=== PATIENT | female | born 1970 | race Caucasian/White ===

== ENCOUNTER 2022-09-23 10:00 | Outpatient (CLI) | payer BC, SELFPAY ==
--- NOTE | ~2022-09-23 | MR_ITS ---
MRI of the cervical spine Clinical History: Neck pain Technique: Axial T2-weighted and gradient images, and sagittal T1-weighted, T2-weighted, and STIR woody ges were acquired. Findings: There is no fracture or subluxation of the cervical spine. Vertebral bodies maintain normal height and alignment. No suspicious bone marrow signal abnormality identified. At C2-C3, there is no disc bulge or herniation. No spinal canal stenosis, cord compression, or neural foraminal narrowing. At C3-C4, there is mild left paracentral to left foraminal disc bulge. No spinal canal stenosis or co rd compression. There is left neural foraminal narrowing. Right neural foramen preserved. At C4-C5, there is minimal disc bulge bulge with minimal canal stenosis but no cory cord compression . No neural foraminal narrowing. At C5-C6, there is minimal disc bulge with mild central canal stenosis but no cory cord compression. There is probable mild right neural foraminal narrowing. Left neural foramen preserved. At C6-C7, there is no significant disc bulge or herniation. No spinal canal stenosis, cord compressio n, or neural foraminal narrowing. No abnormal signal seen in the spinal cord. Paravertebral soft tissues are unremarkable. No preverteb ral soft tissue swelling. Impression: Mild degenerative spondylosis, as detailed above. Probable mild left neural foraminal narrowing at C3 -C4 and mild right neural foraminal narrowing at C5-C6. Probable minimal canal stenosis at C4-C5 and C5-C6, without cory cord compression. Reviewed, dictated and finalized at location [] [facility] Impression: Mild degenerative spondylosis, as detailed above. Probable mild left neural for aminal narrowing at C3-C4 and mild right neural foraminal narrowing at C5-C6. Probable minimal canal stenosis at C4-C5 and C5-C6, without cory cord compress ion.
== END 2022-09-23 10:01 | disposition home or self-care (01) ==
PROVIDERS: PCP Family Medicine; Visit Provider Neurological Surgery
DX: M47.892 Other spondylosis, cervical region (principal)
CPT/HCPCS: 72141

== ENCOUNTER 2023-11-19 13:22 | Emergency (ER) | payer BC, SELFPAY ==
[2023-11-19] VITALS (21 sets, daily range): BP systolic 101–155; BP diastolic 75–96; PULSE 72–104; RESP 11–22; TEMP 36.3; O2SAT 94–100
--- NOTE | ~2023-11-19 | XR_ITS ---
EXAMINATION: XR chest 1V portable INDICATION: Chest pressure TECHNIQUE: Portable AP chest at 1402 hours COMPARISON: None available FINDINGS: The lungs are free of acute opacities. No pleural effusion or pneumothorax. The cardiomedia stinal silhouette is normal. IMPRESSION: 1. No acute cardiopulmonary abnormality. Reviewed, dictated and finalized at location B. [facility]
--- NOTE | 2023-11-19 13:28 | ECG_ITS ---
Measurements Intervals [place] Rate: 82 P: 60 [place]: 145 QRS: 23 QRSD: 97 T: 50 QT: 358 QTc: 418 Interpretive Statements SINUS RHYTHM WITH OCCASIONAL VENTRICULAR PREMATURE COMPLEXES LOW QRS VOLTAGE NONSPECIFIC T-WAVE ABNORMALITY ABNORMAL ECG NO PREVIOUS ECG AVAILABLE FOR COMPARISON Electronically Signed On 11-19-2023 15:50:04 ADDICTIONS COUNSELOR ASSISTANT by Obi Aldana M.D.
[2023-11-19 13:57] LABS: Basophils Absolute Auto 0.04 K/mm3 (0.00-0.10); Basophils Percent Auto 0.6 % (0.0-1.0); Eosinophils Absolute Auto 0.24 K/mm3 (0.02-0.50); Eosinophils Percent Auto 3.4 % (1.0-6.0); Hematocrit 44.4 % (35.0-49.0); Hemoglobin 14.9 g/dL (12.0-15.0); Immature Granulocyte Absolute 0.04 K/mm3 (0.00-0.00); Immature Granulocyte Percent A 0.6 % (0.0-0.0); Lymphocytes Absolute Auto 1.65 K/mm3 (1.10-4.50); Lymphocytes Percent Auto 23.4 % (18.0-42.0); Mean Corpuscular HGB Conc 33.6 g/dL (32.0-36.0); Mean Corpuscular Hemoglobin 29.4 pg (27.0-31.0); Mean Corpuscular Volume 87.7 fL (78.0-102.0); Mean Platelet Volume 9.8 fl (9.2-11.8); Monocytes Absolute Auto 0.35 K/mm3 (0.10-0.90); Neutrophils Absolute Auto 4.7 K/mm3 (1.7-7.2); Platelet Count Result 232 K/mm3 (150-420); Red Blood Count 5.06 M/mm3 (4.20-5.40); Red Cell Distribution Width 12.5 % (11.6-14.4)
[2023-11-19] MEDS: ASPIRIN 81 MG CHEWABLE TABLET 324 MG PO (14:07)
[2023-11-19 14:11] LABS: D Dimer 0.27 mg/L (0.19-0.50)
--- NOTE | 2023-11-19 14:14 | PC.NURSE ---
pt declined iv at this time unless needed .
[2023-11-19 14:21] LABS: Alanine Aminotransferase 63 U/L (14-59); Albumin Level 3.8 g/dL (3.4-5.0); Alkaline Phosphatase 54 U/L (46-116); Anion Gap 9 mmol/L (8-16); Aspartate Amino Transferase 74 U/L (15-37); Bilirubin,Total 0.5 mg/dL (0.00-1.00); Blood Urea Nitrogen 26 mg/dL (7-18); Calcium 9.3 mg/dL (8.5-10.1); Carbon Dioxide 30 mmol/L (21-32); Chloride 100 mmol/L (98-108); Estimated Glomerular Filt Rate 49; Glucose 157 mg/dL (70-99); Lipase 52 U/L (16-77); NT Pro B Type Natriuretic Pept 35 pg/mL (0-125); Osmolality Calculated 295 mOsm/kg (285-295); Sodium 139 mmol/L (136-145); Total Protein 7.1 g/dL (6.4-8.2)
[2023-11-19 14:32] LABS: Troponin I 4.6 ng/L (0.00-60.4)
[2023-11-19 15:06] LABS: Appearance Urine Clear (Clear); Bilirubin Urine Negative (Negative); Blood Urine Trace-Intact (Negative); Color Urine Light Yellow (Yellow); Glucose Urine UA Negative (Negative); Ketones Urine Trace (Negative); Leukocyte Esterase Ur Negative LEU/UL (Negative); Nitrate Urine Negative (Negative); Protein Urine Negative (Negative); Urobilinogen Urine 0.2 mg/dL (0.2-1.0); pH Urine 5.5 (5.0-8.0)
[2023-11-19 15:12] LABS: Add Urine Microscopic? YES; Bacteria Urine Trace /hpf; RBC Urine 0-2 /hpf (0-2); Squamous Epithelial Cell Urine Few /hpf (Few); WBC Urine None seen /hpf (0-3)
[2023-11-19] MEDS: POTASSIUM CHLORIDE 20 MEQ PACKET (FOR LIQUID) 40 MEQ PO (15:33)
--- NOTE | 2023-11-19 15:54 | ED.CHESTPAIN ---
HPI - Chest Pain General Chief Complaint: Chest Pain Stated Complaint: chest pain Source: patient Mode of arrival: ambulatory Limitations: no limitations History of Present Illness HPI narrative: Patient is a 53-year-old female with significant past medical history presents today with chest pain. Patient has had chest pain on and off for the last week. She states the chest pain comes and goes, does not matter if she is at rest or if she is with activity. She denies any shortness of breath. She does states she has been doing some heavy lifting around the house and there could be possibility of pulling a muscle in the chest. She has no cardiac history that she is aware of. Denies any family history of cardiac problems. MD complaint: chest pain Onset (ago): week(s) Timing of current episode: episodic Prior episodes: Yes Onset: during rest and during exertion Pain location: left chest and right chest Pain radiation: none Severity: mild Pain scale (0-10): 3 Quality: tightness and sharp Relieving factors: nothing Exacerbating factors: nothing Context: recent illness Associated symptoms: diaphoresis Treatment prior to arrival: none Related Data On Oral Contraceptives: No Home Medications Medication Instructions Recorded Confirmed sertraline 25 mg tablet 25 mg PO DAILY 09/07/22 09/29/22 tizanidine 4 mg capsule 4 mg PO QHS PRN 09/07/22 09/29/22 topiramate 25 mg tablet 25 mg PO DAILY 09/07/22 09/29/22 Allergies Allergy/AdvReac Type Severity Reaction Status Date / Time No Known Allergies Allergy Verified 09/07/22 15:03 Review of Systems Review of Systems: All systems reviewed & are unremarkable except as noted in HPI and below Constitutional: Constitutional: Reports no additional constitutional complaints Eyes: Eyes: Reports no additional eye complaints ENT: Reports system reviewed and no additional complaints, except as documented Cardiovascular: Cardiovascular: Reports as per HPI and Reports chest pain Respiratory: Respiratory: Reports no additional respiratory complaints and Reports no additional respiratory complaints Gastrointestinal: Gastrointestinal: Reports no additional gastrointestinal complaints Genitourinary: Genitourinary: Reports no additional female genitourinary complaints Musculoskeletal: Musculoskeletal: Reports as per HPI Integumentary/Breasts: Skin/Breast: Reports system reviewed and no additional complaints, except as docu Neurologic: Reports system reviewed and no additional complaints, except as documented Psychiatric: Psychiatric: Reports no additional psychiatric complaints Endocrine: Endocrine: Reports no additional endocrine complaints Hematologic/Lymphatic: Hematologic/Lymphatic: Reports no additional hematologic/lymphatic complaints Allergic/Immunologic: Allergic/Immunologic: Reports no additional allergic/immunologic complaints [facility] Past Medical History Medical History Acute arthritis Chronic headaches Surgical History Surgical History H/O: hysterectomy Family History Family History Other Lung cancer Thyroid disease Social History Social History Smoking status: Never smoker Alcohol intake: current Substance use: never Substance use type: does not use Current Housing: Decline to Answer Concerned About Future Housing: Decline to Answer Difficulty Paying Gas/Electric Bills: Decline to Answer Difficulty Paying for Meds: Decline to Answer Currently Unemployed: Decline to Answer Education: Decline to Answer Difficulty w/ Childcare or Family Care: Decline to Answer Living arrangements: with family Occupation/Education: occupation Exam Const: General: cooperative and healthy appearing Nutritional Appearance: average b
== END 2023-11-19 16:09 | disposition home or self-care (01) ==
PROVIDERS: Emergency Provider Family Medicine; PCP Family Medicine
DX: M94.0 Chondrocostal junction syndrome [Tietze] (principal); R07.89 Other chest pain
CPT/HCPCS: 36415; 71045; 80053; 81001; 83690; 83880; 84484; 85025; 85380; 93005; 99284; A9270

== ENCOUNTER 2024-04-23 06:52 | Emergency (ER) | payer BC, SELFPAY ==
[2024-04-23] VITALS (36 sets, daily range): BP systolic 113–152; BP diastolic 71–98; PULSE 65–90; RESP 14–18; TEMP 36.4–37.3; O2SAT 94–100
--- NOTE | ~2024-04-23 | CT_ITS ---
EXAMINATION: CT abdomen pelvis w con DATE: 04/23/2024 08:31 INDICATION: Pancreatitis percent with nausea and epigastric pain. Elevated liver function tests. TECHNIQUE: Computed tomography (CT) of the abdomen and pelvis was performed with 100 mL Omnipaque-350 intravenous contrast. Automated exposure control and iterative reconstruction technique were employe d. The dose-length product was 613.19 mGy-cm. COMPARISON: None FINDINGS: Mild discoid atelectasis in the left lower lobe and lingula. Calcified lingular nodule consistent wit h old granulomatous disease. Heart size is normal. No pericardial or pleural effusion. Peripancreatic stranding consistent with acute interstitial pancreatitis. There is homogeneous pancreatic parenchym al enhancement. No discrete loculated peripancreatic fluid collections. Mild dilation of the common b ile duct which measures up to 10 mm in maximal diameter. Minimal amount of pericholecystic fluid. The gallbladder is otherwise unremarkable. Spleen, bilateral adrenal glands and left kidney are normal. 7 mm right renal cyst. Minimal amount of likely reactive ascites in the deep pelvis. No bowel obstruc tion. Normal appendix. Bladder is normal. The uterus is not identified and has likely been surgically resected. No pathologically enlarged abdominal or pelvic lymphadenopathy. Mild to moderate lower lum bar spondylosis with severe bilateral facet osteoarthritis at L4-L5 and with likely fusion at L5-S1. IMPRESSION: 1. Acute interstitial pancreatitis. 2. Dilation of the common bile duct and could not exclude a low-density gallstones occult on CT. Cons ider MRCP for further evaluation. Reviewed, dictated and finalized at location A. IMPRESSION: 1. Acute interstitial pancreatitis. 2. Dilation of the common bile duct and could not exclude a low-density gallsto isaac occult on CT. Consider MRCP for further evaluation.
--- NOTE | 2024-04-23 06:56 | ED.GENADULT ---
HPI - General Adult General Chief complaint: Abdominal Pain Stated complaint: epigastric pain Time Seen by Provider: 04/23/24 06:54 History of Present Illness HPI narrative: Jessika is a 53F with a PMH of foraminal stenosis of the cervical spine and GERD that presented to the ED with epigastric discomfort. It has been going on off and on for the last week. Yesterday, around 6 PM she had pain in her epigastric region that radiates to her back. She is nauseated and cannot vomit. No diarrhea but last BM was at 0400. No CP or dyspnea. Related Data Home Medications Medication Instructions Recorded Confirmed pantoprazole 40 mg tablet,delayed 40 mg PO BID 04/23/24 04/23/24 release Allergies Allergy/AdvReac Type Severity Reaction Status Date / Time No Known Allergies Allergy Verified 04/23/24 07:06 Review of Systems Review of Systems: All systems reviewed & are unremarkable except as noted in HPI and below PMFSH Past Medical History Medical History Acute arthritis Chronic headaches Surgical History Surgical History H/O: hysterectomy Family History Family History Other Lung cancer Thyroid disease Social History Social History Smoking status: Never smoker Alcohol intake: current Substance use: never Substance use type: does not use Current Housing: Decline to Answer Concerned About Future Housing: Decline to Answer Difficulty Paying Gas/Electric Bills: Decline to Answer Difficulty Paying for Meds: Decline to Answer Currently Unemployed: Decline to Answer Education: Decline to Answer Difficulty w/ Childcare or Family Care: Decline to Answer Living arrangements: with family Occupation/Education: occupation Course Course Emergency Course: -Ordered EKG and labs EKG slhowed NSR with a rate of 76, normal axis and no ST elevation or depression Labs showed very elevated LFTs, bilirubin, lipase and CRP so a CT was ordered as well more fluids and pain meds. EXAMINATION: CT abdomen pelvis w con DATE: 04/23/2024 08:31 INDICATION: Pancreatitis percent with nausea and epigastric pain. Elevated liver function tests. TECHNIQUE: Computed tomography (CT) of the abdomen and pelvis was performed with 100 mL Omnipaque-350 intravenous contrast. Automated exposure control and iterative reconstruction technique were employed. The dose-length product was 613.19 mGy-cm. COMPARISON: None FINDINGS: Mild discoid atelectasis in the left lower lobe and lingula. Calcified lingular nodule consistent with old granulomatous disease. Heart size is normal. No pericardial or pleural effusion. Peripancreatic stranding consistent with acute interstitial pancreatitis. There is homogeneous pancreatic parenchymal enhancement. No discrete loculated peripancreatic fluid collections. Mild dilation of the common bile duct which measures up to 10 mm in maximal diameter. Minimal amount of pericholecystic fluid. The gallbladder is otherwise unremarkable. Spleen, bilateral adrenal glands and left kidney are normal. 7 mm right renal cyst. Minimal amount of likely reactive ascites in the deep pelvis. No bowel obstruction. Normal appendix. Bladder is normal. The uterus is not identified and has likely been surgically resected. No pathologically enlarged abdominal or pelvic lymphadenopathy. Mild to moderate lower lumbar spondylosis with severe bilateral facet osteoarthritis at L4-L5 and with likely fusion at L5-S1. IMPRESSION: 1. Acute interstitial pancreatitis. 2. Dilation of the common bile duct and could not exclude a low-density gallstones occult on CT. Consider MRCP for further evaluation. Contacted [facility] for admission and Dr. Casey called back who accepted. given elevated lipase, LFTs, bili and CT gallstone p
--- NOTE | 2024-04-23 06:58 | ECG_ITS ---
Test Date: 2024-04-23 07:08:02 Measurements Intervals [place] Rate: 76 P: 51 [place]: 143 QRS: 33 QRSD: 81 T: 59 QT: 379 QTc: 427 Interpretive Statements SINUS RHYTHM BASELINE WANDER- I, II, III, AVL, AVF NORMAL ECG No previous ECG available for comparison Electronically Signed On 04-23-2024 07:22:01 CDT by Srini Fitzpatrick D.O.
[2024-04-23 07:21] LABS: Basophils Absolute Auto 0.03 K/mm3 (0.00-0.10); Basophils Percent Auto 0.4 % (0.0-1.0); Eosinophils Absolute Auto 0.12 K/mm3 (0.02-0.50); Eosinophils Percent Auto 1.6 % (1.0-6.0); Hematocrit 43.1 % (35.0-49.0); Hemoglobin 14.7 g/dL (12.0-15.0); Immature Granulocyte Absolute 0.02 K/mm3 (0.00-0.00); Immature Granulocyte Percent A 0.3 % (0.0-0.0); Lymphocytes Absolute Auto 1.12 K/mm3 (1.10-4.50); Lymphocytes Percent Auto 14.5 % (18.0-42.0); Mean Corpuscular HGB Conc 34.1 g/dL (32-36); Mean Corpuscular Hemoglobin 30.4 pg (27.0-31.0); Mean Platelet Volume 10.4 fl (9.2-11.8); Monocytes Absolute Auto 0.38 K/mm3 (0.10-0.90); Monocytes Percent Auto 4.9 % (2.0-11.0); Neutrophils Absolute Auto 6.03 K/mm3 (1.70-7.20); Neutrophils Percent Auto 78.3 % (50.0-70.0); Platelet Count Result 224 K/mm3 (150-420); Red Blood Count 4.84 M/mm3 (4.20-5.40); Red Cell Distribution Width 12.3 % (11.6-14.4); White Blood Count 7.7 K/mm3 (4.8-10.8)
[2024-04-23] MEDS: LACTATED RINGERS 500 ML 999 ML IV CONT (07:30)
[2024-04-23] MEDS: MORPHINE SULFATE (*CRX) 4 MG/ML INJ IV PUSH (07:31)
[2024-04-23] MEDS: ONDANSETRON INJ 4 MG/2 ML VIAL IV PUSH (07:31)
[2024-04-23 07:41] LABS: Lactic Acid Reflex 1.5 mmol/L (0.4-2.0)
[2024-04-23 07:47] LABS: Albumin Level 3.7 g/dL (3.4-5.0); Alkaline Phosphatase 118 U/L (46-116); Anion Gap 8 mmol/L (4-12); Bilirubin,Total 2.6 mg/dL (0.00-1.00); Blood Urea Nitrogen 17 mg/dL (7-18); CRP 0.5 mg/dL (0.0-0.9); Calcium 8.7 mg/dL (8.5-10.1); Carbon Dioxide 27 mmol/L (21-32); Chloride 102 mmol/L (98-108); Estimated Glomerular Filt Rate 52; Glucose 166 mg/dL (70-99); Osmolality Calculated 289 mOsm/kg (285-295); Potassium 3.9 mmol/L (3.5-5.1); Sodium 137 mmol/L (136-145); Total Protein 7.1 g/dL (6.4-8.2)
[2024-04-23 07:50] LABS: Alanine Aminotransferase > 1000 U/L (14-59); Aspartate Amino Transferase > 796 U/L (15-37); Lipase 2839 U/L (16-77); Troponin I < 4.0 ng/L (0.00-60.4)
[2024-04-23 08:36] LABS: Cholesterol 228 mg/dL (0-200); HDL Direct 66 mg/dL (40-60); LDL Cholesterol Calculated 146 mg/dL (<130); Triglycerides 79 mg/dL (0-150)
[2024-04-23] MEDS: LACTATED RINGERS 1,000 ML 999 ML IV CONT (09:16)
[2024-04-23] MEDS: MORPHINE SULFATE (*CRX) 2 MG/ML INJ IV PUSH (09:16)
== END 2024-04-23 12:38 | disposition short-term general hospital (02) ==
PROVIDERS: Emergency Provider Family Medicine; PCP Family Medicine
DX: K85.10 Biliary acute pancreatitis without necrosis or infection (principal)
CPT/HCPCS: 36415; 74177; 80053; 80061; 83605; 83690; 84484; 85025; 86140; 93005; 96361; 96374; 96375; 96376; 99285; J2270; J2405; J7120; Q9967

== ENCOUNTER 2024-04-23 13:13 | Inpatient (IN) | payer BC, SELFPAY ==
--- NOTE | ~2024-04-23 | XR_ITS ---
EXAMINATION: XR ERCP DATE: 04/26/2024 14:16 INDICATION: Cholelithiasis with ERCP and sweeping TECHNIQUE: Multiple spot fluoroscopic images of the right upper quadrant were obtained during endosco pic retrograde cholangiopancreatography (ERCP) performed by Dr. Kenneth May. Radiologist was not present for the imaging or procedure. The amount of fluoroscopy time used during this procedure was 2 .1 minutes. A total of 9 fluoroscopic images were obtained. Total DAP was 0.758 mGycm^2 COMPARISON: MRCP dated 04/24/2024 FINDINGS: Images demonstrate endoscopic retrograde cannulation of the common bile duct with contrast injection demonstrated mild dilation the common bile duct. There are some lucent filling defects in the duct on the initial images which could represent injected gas bubbles or gallstones. These are normal in brent earance and following balloon sweeping of the common bile duct. IMPRESSION: 1. Couple lucent filling defects in the mildly dilated common bile duct which could've represented in jected gas bubbles or stones and which are no longer present following balloon sweeping of the common bile duct. Please refer to the ERCP procedure note for additional details. Reviewed, dictated and finalized at location A. IMPRESSION: 1. Couple lucent filling defects in the mildly dilated common bile duct which c ould've represented injected gas bubbles or stones and which are no longer pres ent following balloon sweeping of the common bile duct. Please refer to the ERC P procedure note for additional details.
--- NOTE | ~2024-04-23 | NM_ITS ---
EXAMINATION: NM hepatobiliary w pharm DATE: 04/25/2024 11:39 INDICATION: Cholelithiasis COMPARISON: None. TECHNIQUE: 5.0 mCi Tc-99m mebrofenin (Choletec) was administered intravenously. Scintigraphic images of the abdomen were obtained for one hour. 1.6 mcg sincalide (Kinevac) was administered by slow intr avenous infusion, and imaging was continued for 30 minutes. Gallbladder ejection fraction was calcula francoise by the technologist. FINDINGS: There is normal clearance of radiotracer from the blood pool. There is homogeneous tracer uptake by t he liver. Activity progresses to the gallbladder and bowel. The gallbladder ejection fraction (GBEF) is 27% (normal 10-90%, but most patient with gallbladder dysfunction have GBEF < 35% which does over lap with the normal range). IMPRESSION: 1. Gallbladder ejection fraction is at the lower limits of normal. This could be normal but is also within the range of overlap with gallbladder dysfunction or chronic cholecystitis in the appropriate clinical setting. Reviewed, dictated and finalized at location A.
--- NOTE | ~2024-04-23 | MR_ITS ---
MRI of the abdomen: Clinical indication: Dilated common bile duct, pancreatitis. Technique: Coronal SSFSE ARC, WATER:coronal LAVA-FLEX, Coronal 2D FIESTA FatSat, Axial SSFSE BH ARC, Axial 3D DualEcho BH, Axial SSFSE-IR, Axial DWI b=500, Axial 2D FIESTA FatSat, pre and dynamic postco ntrast Axial LAVA ARC, postcontrast Coronal In and Opposed phase LAVA FLEX. Following intravenous adm inistration of 16 cc MultiHance gadolinium, T1-weighted fat-sat imaging was performed in the axial an d coronal planes. COMPARISON: CT scan dated 04/23/2024 Findings: Gallstones are noted. There is gallbladder wall thickening. The common bile duct is normal in course and caliber. Questionable single tiny filling defect in the distal common bile duct (series 9 image 25). No evidence of intrahepatic biliary ductal dilatation. The pancreatic duct is normal in size. Liver, spleen, adrenals, kidneys appear normal. There is minimal peripancreatic inflammatory change/f luid stranding. No pancreatic necrosis or pseudocyst evident. The aorta and the paraaortic regions ap pear normal. No abnormal postcontrast enhancement identified. Impression: Cholelithiasis. Gallbladder wall thickening could reflect superimposed acute cholecystitis. Consider HIDA scan as indicated. Mild acute pancreatitis. Possible tiny common bile duct stone, as detailed above. Reviewed, dictated and finalized at [facility]. Impression: Cholelithiasis. Gallbladder wall thickening could reflect superimposed acute ch olecystitis. Consider HIDA scan as indicated. Mild acute pancreatitis. Possible tiny common bile duct stone, as detailed above.
[2024-04-23 13:25] VITALS: BMI 33.4
--- NOTE | 2024-04-23 13:29 | PC.NURSE ---
This patient, Jessika Wagner, was admitted to [facility] Surg Room 324-01. Patient/family oriented to hospital policies and general routines including ID bracelet, bed and alarms, visiting hours, pain management, procedures, bathroom and other care routines, personal items, smoking policy, room service/diet, and visiting hours. Information on how to activate the Rapid Response Team has been discussed. Patient/Family are encouraged to report perceived risks to care and to ask questions if they do not understand what they are told or what they should do.
--- NOTE | 2024-04-23 13:29 | PM.IMHP ---
H&P: HPI History of Present Illness Date/Time: 04/23/24 13:30 Chief Complaint: Epigastric pain. Narrative: This is a very pleasant 53-year-old female with GERD who presented to the emergency department at [facility] early this morning for evaluation of epigastric pain. She has not been feeling well for about a week with intermittent epigastric pain which seems to occur not long after eating. It had been self-limiting up until last night and she has had constant pain since about 18:00. She describes a severe squeezing/tight pain in the epigastrium which radiates through to the back. Associated symptoms include nausea and hot flashes. She had a similar episode in November of this year. She has taken aspirin, acetaminophen, and [id number] PPI, and Lola-Foreman without relief. She denies fever, vomiting, diarrhea, melena, and hematochezia. She has no known history of gallbladder disease, pancreatitis, or peptic ulcers. No significant alcohol use or NSAID use. In the ED: She was afebrile on arrival with stable vital signs. Preliminary workup is concerning for gallstone pancreatitis with elevated lipase, LFTs, and bilirubin in addition to findings of acute interstitial pancreatitis on CT scan with dilatation of common bile duct. Transfer was initiated to [place] for GI services and she was accepted to the medical floor per Dr. Casey. She received IV fluids, antiemetics, and analgesics and the pain is perhaps a bit better at this time. Review of Systems Review of Systems: 12 systems were reviewed and are negative except for as per HPI. [facility] Past Medical History Medical History (Updated 04/23/24 @ 13:35 by Chela Freeman PA-C) Cervical spondylosis Chronic headaches Foraminal stenosis of cervical region Gastroesophageal reflux disease Surgical History Surgical History (Updated 04/23/24 @ 13:35 by Chela Freeman PA-C) History of hysterectomy History of lumbar laminectomy Family History Family History Other Lung cancer Thyroid disease Social History Social History (Updated 04/23/24 @ 15:33 by Chela Freeman PA-C) Social History: Surrogate medical decision maker: Roxi Morillo, daughter. Code status: Full code. Smoking status: Never smoker Alcohol intake: current Drinks per week: 5 Substance use: never Substance use type: does not use Do You Feel Safe in your Home?: Yes Lack of Transportation: No Lack of Food: Never True Current Housing: Decline to Answer Concerned About Future Housing: Decline to Answer Difficulty Paying Gas/Electric Bills: Decline to Answer Difficulty Paying for Meds: Decline to Answer Currently Unemployed: Decline to Answer Education: Decline to Answer Difficulty w/ Childcare or Family Care: Decline to Answer Living arrangements: with family Occupation/Education: occupation Spiritual care concerns: No Meds Home Medications and Allergies Home Medications Medication Instructions Recorded Confirmed Type pantoprazole 40 mg tablet,delayed 40 mg PO BID 04/23/24 04/23/24 History release Allergies Allergy/AdvReac Type Severity Reaction Status Date / Time No Known Allergies Allergy Verified 04/23/24 07:06 Exam Narrative: General: Well-developed, nontoxic-appearing female in moderate pain. Weight: 80.9 kg. BMI: 33.4. HEENT: PERRL, EOMI. Sclera anicteric. Tacky mucous membranes. Neck: Supple. Respiratory: Lungs are clear to auscultation bilaterally. Cardiovascular: Regular rate and rhythm with S1-S2. Gastrointestinal: Abdomen is soft and nondistended with positive bowel sounds. She is tender to palpation throughout the upper quadrant. No guarding or rebound tenderness. Skin: Warm and dry. She does not appear jaundiced. Extremities: No cyanosis, clubbing, or edema. Radial and pedal pulses intact. Neurological: Alert. Cranial nerves 2
[2024-04-23 13:36] VITALS: BP 122/75; PULSE 86; RESP 16; TEMP 36.5; O2SAT 99
[2024-04-23] MEDS: SODIUM CHLORIDE 0.9% IV 1,000 ML 150 ML IV CONT ×2 (14:17→23:38)
[2024-04-23] MEDS: MORPHINE SULFATE (*CRX) 2 MG/ML INJ IV PUSH ×2 (14:17→20:37)
[2024-04-23] MEDS: ONDANSETRON INJ 4 MG/2 ML VIAL IV PUSH (14:17)
[2024-04-23 15:19] LABS: Prothrombin Time 13.2 Seconds (11.1-14.7)
[2024-04-23 15:20] LABS: Partial Thromboplastin Time 25.8 Seconds (22.3-36.8)
[2024-04-23 15:37] LABS: Alkaline Phosphatase 108 U/L (38-126); Anion Gap 9 mmol/L (4-12); Bilirubin,Total 1.1 mg/dL (0.2-1.3); Blood Urea Nitrogen 16 mg/dL (7-17); Calcium 8.4 mg/dL (8.4-10.2); Carbon Dioxide 25 mmol/L (22-30); Chloride 105 mmol/L (98-107); Estimated CRCL calculation 71 ml/min; Estimated Glomerular Filt Rate > 60; Glucose 114 mg/dL (65-110); Potassium 3.6 mmol/L (3.4-5.0); Sodium 139 mmol/L (137-145)
[2024-04-23 15:51] LABS: Hepatitis B Surface Antigen Negative (Negative)
[2024-04-23 15:54] LABS: Alanine Aminotransferase 1079 U/L (6-35); Aspartate Amino Transferase 948 U/L (14-36); Lipase 26518 U/L (23-300)
[2024-04-23 15:57] LABS: HAV RESULT Negative (Negative); Hepatitis B Core IgM Result Negative (Negative)
[2024-04-23 16:08] LABS: Hepatitis C Virus Antibody Negative (Negative)
[2024-04-23 20:28] LABS: Acetaminophen < 10 ug/mL (10-30)
[2024-04-23 20:40] VITALS: PULSE 86; RESP 16; O2SAT 99
[2024-04-23 23:30] VITALS: BP 124/85; PULSE 83; RESP 18; TEMP 36.3; O2SAT 92
[2024-04-24 06:00] VITALS: BP 130/79; PULSE 84; RESP 20; TEMP 36.3; O2SAT 96
[2024-04-24] MEDS: SODIUM CHLORIDE 0.9% IV 1,000 ML 150 ML IV CONT ×2 (06:03→16:37)
[2024-04-24 06:15] LABS: Hematocrit 37.3 % (37.0-47.0); Hemoglobin 12.3 g/dL (12.0-15.0); Mean Corpuscular Hemoglobin 30.8 pg (26-34); Mean Corpuscular Volume 93.5 fl (80-100); Mean Platelet Volume 10.4 fl (7.4-10.4); Platelet Count Result 184 k/mm3 (150-375); Red Blood Count 3.99 M/mm3 (4.2-5.4); Red Cell Distribution Width 12.7 % (11.5-14.5); White Blood Count 7.1 K/mm3 (4.5-10.0)
[2024-04-24 06:25] LABS: Alanine Aminotransferase 719 U/L (6-35); Albumin Level 3.5 g/dL (3.5-5.1); Alkaline Phosphatase 90 U/L (38-126); Anion Gap 8 mmol/L (4-12); Aspartate Amino Transferase 360 U/L (14-36); Bilirubin,Total 0.7 mg/dL (0.2-1.3); Blood Urea Nitrogen 11 mg/dL (7-17); Calcium 7.7 mg/dL (8.4-10.2); Carbon Dioxide 25 mmol/L (22-30); Chloride 106 mmol/L (98-107); Estimated CRCL calculation 80 ml/min; Estimated Glomerular Filt Rate > 60; Glucose 100 mg/dL (65-110); Potassium 3.2 mmol/L (3.4-5.0); Sodium 139 mmol/L (137-145)
--- NOTE | 2024-04-24 08:28 | PM.IMPN ---
Progress Note: A&P Assessment and Plan (1) Acute pancreatitis: Code(s): K85.90 - Acute pancreatitis without necrosis or infection, unspecified Status: Acute Assessment and Plan: - Abdomen/pelvis CT: Acute interstitial pancreatitis. Dilation of the common bile duct and could not exclude a low-density gallstones occult on CT. Consider MRCP for further evaluation. - MRCP: Cholelithiasis. Gallbladder wall thickening could reflect superimposed acute cholecystitis. Consider HIDA scan as indicated. Mild acute pancreatitis. Possible tiny common bile duct stone. - HIDA scan ordered - Lipase 2839 on admission -> 15104. Will continue to trend. - Analgesics - IV fluid resuscitation - Continue bowel rest, patient remains NPO for HIDA scan will advance to clear liquids afterwards - GI consulted - Monitor I&Os, vital signs, - Monitor serum electrolytes, CBC, WBC, temperature curve (2) Transaminitis: Code(s): R74.01 - Elevation of levels of liver transaminase levels Status: Acute Assessment and Plan: Tot bili 2.6, AST >796, ALT >1000, alk phos 118 on admission. Concerning for common bile duct obstruction. No choledocholithiasis seen on imaging. Possible that the stone has passed. - LFTs downtrending with IV fluid resuscitation - GI consulted Liver workup ordered - Abdomen/pelvis CT: Acute interstitial pancreatitis. Dilation of the common bile duct and could not exclude a low-density gallstones occult on CT. Consider MRCP for further evaluation. - MRCP: Cholelithiasis. Gallbladder wall thickening could reflect superimposed acute cholecystitis. Consider HIDA scan as indicated. Mild acute pancreatitis. Possible tiny common bile duct stone. (3) Common bile duct dilatation: Code(s): K83.8 - Other specified diseases of biliary tract Status: Acute Assessment and Plan: See acute pancreatitis #1 and transaminitis #2 (4) Gastroesophageal reflux disease: Code(s): K21.9 - Gastro-esophageal reflux disease without esophagitis Status: Acute Assessment and Plan: Chronic, well controlled on home medications. - Protonix 40 mg IV - Monitor Time Spent With Patient Time with patient: 25 - 35 minutes Subjective Date/time seen: 04/24/24 08:28 Interval history: 53-year-old female with GERD who presented to the emergency department at [facility] early this morning for evaluation of epigastric pain. Patient is pleasant lying comfortably in bed. She states she is feeling much better than yesterday. She continues to endorse mild epigastric pain with palpation that she describes as a bruising pain. She denies nausea/vomiting. Patient was evaluated by GI and a HIDA scan was ordered. Patient denies chest pain, shortness of breath, palpitations, and changes in bowel/bladder. Review of Systems Review of Systems: All systems reviewed & are unremarkable except as noted in HPI and below Exam Narrative: AF HR 85 RR 16 SpO2 98 BP 117/80 General: female in no acute respiratory distress who is nontoxic appearing, lying semi recumbent in bed. HEENT: Normocephalic. Atraumatic. Extraocular movement intact. Sclera clear and anicteric. No facial asymmetry. Chest: Lungs are clear to auscultation bilaterally. No wheezes or crackles. CV: Heart was regular rate and rhythm. S1-S2. No murmurs, gallops, or rubs. Abd: Abdomen was soft. Mild tenderness to epigastric region. Nondistended. Positive bowel sounds. No organomegaly or masses. Ext: No clubbing, cyanosis, or edema. 2+ DP pulses bilaterally. Neuro: Patient is alert and oriented x4. Cranial nerves 2-12 are intact. Speech is clear. Psych: Normal mood and affect. Patient is pleasant and cooperative. Skin: Warm and dry. No rashes noted. Objective Data Vital Signs Vital Signs: Vital Signs - 24 hr 04/23/24 13:36 04/23/24 20:40 04/23/24 23:30 Temperature 97.7 F 97.3 F L Pulse Rate 86 86 83 Respiratory Rate 16 16 18 Blo
[2024-04-24] MEDS: PANTOPRAZOLE SODIUM IV 40 MG VIAL IV PUSH (08:40)
--- NOTE | 2024-04-24 10:34 | P.CONGI_ITS ---
I, Kendall Long MD, have provided a substantive portion of the care of this patient and discussed the patient with my Nurse Practitioner. I have reviewed any new relevant radiographic and laboratory results including medications. I agree with her documentation as noted below.?I personally performed the medical decision making and much of the history and exam for this encounter. briefly she is here with intermittent post prandial pain since November but lately more intense, localized upper abdomen with radiation to her back and nausea, diagnosed with acute pancreatitis after elevated transaminases and lipase, CT scan c/w gallstone pancreatitis, MRCP showed possible small stone in bile dut. Denies history of liver disease or pancreatitis, no GI surgeries. She is feeling better. Plan is to proceed with ERCP tomorrow with balloon sweep to assess bile duct and also consult surgery. Alcohol only socially, denies excess. Assessment and Plan Assessment and plan (1) Acute pancreatitis: Qualifiers: Pancreatitis type: idiopathic Acute pancreatitis complication: no infection or necrosis Qualified Code(s): K85.00 - Idiopathic acute pancreatitis without necrosis or infection Code(s): K85.90 - Acute pancreatitis without necrosis or infection, unspecified Status: Acute (2) Gastroesophageal reflux disease: Qualifiers: Esophagitis presence: esophagitis presence not specified Qualified Code(s): K21.9 - Gastro-esophageal reflux disease without esophagitis Code(s): K21.9 - Gastro-esophageal reflux disease without esophagitis Status: Acute (3) Elevated lipase: Code(s): R74.8 - Abnormal levels of other serum enzymes Status: Acute (4) Abnormal digestive system diagnostic imaging: Code(s): R93.3 - Abnormal findings on diagnostic imaging of other parts of digestive tract Status: Acute (5) Elevated LFTs: Code(s): R79.89 - Other specified abnormal findings of blood chemistry Status: Acute (6) Gallstones: Code(s): K80.20 - Calculus of gallbladder without cholecystitis without obstruction Status: Acute Plan 1) Acute pancreatitis /elevated lipase/epigastric pain/abnormal imaging digestive- cholelithiasis: LFT's trending down since admission Total bilirubin 2.6 --> 0.7 (today), AST >796 --> 360, ALT >1000 --> 719, Alkaline phosphatase 118 --> 90. Lipase 2839 --> 76295 (today). Epigastric pain has Been occurring intermittently since around December. She describes this pain as a tightness that has no correlation with food intake or bowel movements. She had been started on Protonix 40 mg daily and December and increase to b.i.d. dosing 2 weeks ago with no change in symptoms. On Wednesday her upper abdominal pain became so severe that she presented to the emergency room for evaluation. CT showed acute interstitial pancreatitis and dilation of the common bile duct measuring 10 mm. MRCP was then performed which showed gallstones, gallbladder wall thickening, mild acute pancreatitis, and possible tiny common bile duct stone but no CBD dilation noted. patient denies any recent medication changes, alcohol use or any other recent Hx that may have caused pancreatitis. Unclear if the patient previously had a stone that has passed. * patient is symptomatically doing much better * HIDA scan to evaluate gallbladder function * Labs ordered to R/O autoimmune pancreatitis or viral etiology * recheck lipase tomorrow a.m. 2) Elevated LFTs:LFT's trending down since admission Total bilirubin 2.6 --> 0.7 (today), AST >796 --> 360, ALT >1000 --> 719, Alkaline phosphatase 118 --> 90. normal appearing liver
--- NOTE | 2024-04-24 10:34 | WPDGICN ---
Assessment and Plan Assessment and plan (1) Acute pancreatitis: Qualifiers: Pancreatitis type: idiopathic Acute pancreatitis complication: no infection or necrosis Qualified Code(s): K85.00 - Idiopathic acute pancreatitis without necrosis or infection Code(s): K85.90 - Acute pancreatitis without necrosis or infection, unspecified Status: Acute (2) Gastroesophageal reflux disease: Qualifiers: Esophagitis presence: esophagitis presence not specified Qualified Code(s): K21.9 - Gastro-esophageal reflux disease without esophagitis Code(s): K21.9 - Gastro-esophageal reflux disease without esophagitis Status: Acute (3) Elevated lipase: Code(s): R74.8 - Abnormal levels of other serum enzymes Status: Acute (4) Abnormal digestive system diagnostic imaging: Code(s): R93.3 - Abnormal findings on diagnostic imaging of other parts of digestive tract Status: Acute (5) Elevated LFTs: Code(s): R79.89 - Other specified abnormal findings of blood chemistry Status: Acute (6) Gallstones: Code(s): K80.20 - Calculus of gallbladder without cholecystitis without obstruction Status: Acute Plan 1) Acute pancreatitis /elevated lipase/epigastric pain/abnormal imaging digestive- cholelithiasis: LFT's trending down since admission Total bilirubin 2.6 --> 0.7 (today), AST >796 --> 360, ALT >1000 --> 719, Alkaline phosphatase 118 --> 90. Lipase 2839 --> 65060 (today). Epigastric pain has Been occurring intermittently since around December. She describes this pain as a tightness that has no correlation with food intake or bowel movements. She had been started on Protonix 40 mg daily and December and increase to b.i.d. dosing 2 weeks ago with no change in symptoms. On Wednesday her upper abdominal pain became so severe that she presented to the emergency room for evaluation. CT showed acute interstitial pancreatitis and dilation of the common bile duct measuring 10 mm. MRCP was then performed which showed gallstones, gallbladder wall thickening, mild acute pancreatitis, and possible tiny common bile duct stone but no CBD dilation noted. patient denies any recent medication changes, alcohol use or any other recent Hx that may have caused pancreatitis. Unclear if the patient previously had a stone that has passed. patient is symptomatically doing much better HIDA scan to evaluate gallbladder function Labs ordered to R/O autoimmune pancreatitis or viral etiology recheck lipase tomorrow a.m. 2) Elevated LFTs:LFT's trending down since admission Total bilirubin 2.6 --> 0.7 (today), AST >796 --> 360, ALT >1000 --> 719, Alkaline phosphatase 118 --> 90. normal appearing liver on imaging. No prior history of elevated LFTs. Patient is a social drinker but denies any history of excessive alcohol use. hepatitis panel negative. INR and platelets normal. Acetaminophen level <10. Denies any recent antibiotic use or medication changes. Liver workup ordered continue following LFTs 3) Screening colonoscopy: The patient has never had a colonoscopy. Family history negative for CRC or IBD. Can discuss outpatient colonoscopy during follow-up outpatient visit Thank you very much for allowing me to share the care of this very nice patient. This report may have been done utilizing a voice recognition system. Attempts have been made to correct errors. However, there may be uncorrected grammatical, spelling, and recognition errors present. GI Consult Note Consult date/time: 04/24/24 10:34 Reason for consult: gallstone pancreatitis HPI: This is a 53 year old female with a past medical surgical history of GERD, chronic headaches, and hysterectomy. She presents to the office today for follow up visit after being seen in the [facility] emergency room yesterday morning for epigastric pain. She was afebrile on arrival with stable vital signs. Preliminary workup was concernin
[2024-04-24 11:38] LABS: Iron 38 ug/dL (37-170)
[2024-04-24 11:48] LABS: Percent Iron Saturation 15 % (20-50)
[2024-04-24 13:33] VITALS: BP 117/80; PULSE 85; RESP 16; TEMP 36.5; O2SAT 98
[2024-04-24 15:49] LABS: Lipase 5531 U/L (23-300)
[2024-04-24] MEDS: POTASSIUM CHLORIDE INJ 40 MEQ in SODIUM CHLORIDE 0.9% IV 500 ML 130 MEQ IVPB (16:36)
[2024-04-24 20:00] VITALS: PULSE 85; RESP 16; O2SAT 98
[2024-04-24 22:10] VITALS: BP 130/67; PULSE 95; RESP 16; TEMP 36.8; O2SAT 98
[2024-04-25 05:25] VITALS: BP 124/81; PULSE 97; RESP 20; TEMP 36.8; O2SAT 97
[2024-04-25 06:46] LABS: Basophils Percent Auto 0.5 % (0.2-1.2); Eosinophils Absolute Auto 0.1 K/mm3 (0-0.3); Eosinophils Percent Auto 1.6 % (0-4.4); Hematocrit 38.3 % (37.0-47.0); Hemoglobin 12.4 g/dL (12.0-15.0); Immature Granulocyte Absolute 0.04 K/mm3 (0.00-0.031); Immature Granulocyte Percent A 0.5 % (0-0.5); Lymphocytes Absolute Auto 1.41 K/mm3 (0.9-3.2); Lymphocytes Percent Auto 16.2 % (18.3-44.2); Mean Corpuscular HGB Conc 32.4 g/dl (32-36); Mean Corpuscular Hemoglobin 30.2 pg (26-34); Mean Corpuscular Volume 93.4 fl (80-100); Mean Platelet Volume 10.7 fl (7.4-10.4); Monocytes Absolute Auto 0.6 K/mm3 (0.1-0.6); Monocytes Percent Auto 6.5 % (2.6-8.5); Neutrophils Absolute Auto 6.5 K/mm3 (1.3-6.7); Neutrophils Percent Auto 74.7 % (45.5-73.1); Platelet Count Result 195 k/mm3 (150-375); Red Cell Distribution Width 12.4 % (11.5-14.5); White Blood Count 8.7 K/mm3 (4.5-10.0)
[2024-04-25 07:02] LABS: Alanine Aminotransferase 444 U/L (6-35); Albumin Level 3.7 g/dL (3.5-5.1); Alkaline Phosphatase 95 U/L (38-126); Anion Gap 12 mmol/L (4-12); Aspartate Amino Transferase 117 U/L (14-36); Bilirubin,Total 1.2 mg/dL (0.2-1.3); Blood Urea Nitrogen 6 mg/dL (7-17); Calcium 8.4 mg/dL (8.4-10.2); Carbon Dioxide 19 mmol/L (22-30); Chloride 108 mmol/L (98-107); Estimated CRCL calculation 91 ml/min; Estimated Glomerular Filt Rate > 60; Glucose 79 mg/dL (65-110); Potassium 3.3 mmol/L (3.4-5.0); Sodium 139 mmol/L (137-145)
--- NOTE | 2024-04-25 07:08 | PM.IMPN ---
Progress Note: A&P Assessment and Plan (1) Acute pancreatitis: Qualifiers: Acute pancreatitis complication: no infection or necrosis Pancreatitis type: idiopathic Qualified Code(s): K85.00 - Idiopathic acute pancreatitis without necrosis or infection Code(s): K85.90 - Acute pancreatitis without necrosis or infection, unspecified Status: Acute Assessment and Plan: - Abdomen/pelvis CT: Acute interstitial pancreatitis. Dilation of the common bile duct and could not exclude a low-density gallstones occult on CT. Consider MRCP for further evaluation. - MRCP: Cholelithiasis. Gallbladder wall thickening could reflect superimposed acute cholecystitis. Consider HIDA scan as indicated. Mild acute pancreatitis. Possible tiny common bile duct stone. - HIDA scan: Gallbladder ejection fraction is at the lower limits of normal. This could be normal but is also within the range of overlap with gallbladder dysfunction or chronic cholecystitis in the appropriate clinical setting. - Lipase 2839 on admission -> 91718 -> 5531 - Analgesics - IV fluid resuscitation - Continue bowel rest, advanced to clear liquids afterwards - GI consulted - Monitor I&Os, vital signs, - Monitor serum electrolytes, CBC, WBC, temperature curve (2) Transaminitis: Code(s): R74.01 - Elevation of levels of liver transaminase levels Status: Acute Assessment and Plan: Tot bili 2.6, AST >796, ALT >1000, alk phos 118 on admission. Concerning for common bile duct obstruction. No choledocholithiasis seen on imaging. Possible that the stone has passed. - LFTs downtrending with IV fluid resuscitation - GI consulted Liver workup ordered - Abdomen/pelvis CT: Acute interstitial pancreatitis. Dilation of the common bile duct and could not exclude a low-density gallstones occult on CT. Consider MRCP for further evaluation. - MRCP: Cholelithiasis. Gallbladder wall thickening could reflect superimposed acute cholecystitis. Consider HIDA scan as indicated. Mild acute pancreatitis. Possible tiny common bile duct stone. (3) Common bile duct dilatation: Code(s): K83.8 - Other specified diseases of biliary tract Status: Acute Assessment and Plan: See acute pancreatitis #1 and transaminitis #2 (4) Gastroesophageal reflux disease: Qualifiers: Esophagitis presence: esophagitis presence not specified Qualified Code(s): K21.9 - Gastro-esophageal reflux disease without esophagitis Code(s): K21.9 - Gastro-esophageal reflux disease without esophagitis Status: Acute Assessment and Plan: Chronic, well controlled on home medications. - Protonix 40 mg IV - Monitor Time Spent With Patient Time with patient: 25 - 35 minutes Subjective Date/time seen: 04/25/24 07:08 Interval history: 53-year-old female with GERD who presented to the emergency department at [facility] [place] early this morning for evaluation of epigastric pain. Patient is pleasant lying comfortably in bed. She states that her epigastric pain is much improved from yesterday. She is tolerating a clear liquid diet well, denying nausea vomiting and diarrhea. She had a HIDA scan performed today that revealed a gallbladder ejection fraction on the lower limits of normal. Per Radiology this could be gallbladder dysfunction or chronic cholecystitis. Patient remains on IV fluids in lipase continues to down trend. Lipase 5531 on am labs. GI continues to follow. patient continues to chest pain, shortness a breath, palpitations, in changes in bowel/ bladder. Review of Systems Review of Systems: All systems reviewed & are unremarkable except as noted in HPI and below Exam Narrative: AF HR 97 RR 20 SpO2 97 BP 124/81 General: female in no acute respiratory distress who is nontoxic appearing, lying semi recumbent in bed. Chest: Lungs are clear to auscultation bilaterally. No wheezes or crackles. CV: Heart was regular rate and rhythm
[2024-04-25] MEDS: POTASSIUM CHLORIDE 20 MEQ ER TABLET 40 MEQ PO (08:11)
[2024-04-25] MEDS: PANTOPRAZOLE SODIUM IV 40 MG VIAL IV PUSH (08:11)
[2024-04-25] MEDS: SODIUM CHLORIDE 0.9% IV 1,000 ML 150 ML IV CONT ×2 (12:22→20:04)
[2024-04-25 13:19] LABS: Ceruloplasmin 25 mg/dL (14-48)
[2024-04-25 14:00] VITALS: BP 144/87; PULSE 87; RESP 20; TEMP 36; O2SAT 100
[2024-04-25 14:29] LABS: CMV IgG Antibody >10.00 U/mL; CMV IgM Antibody <30.00 AU/mL
[2024-04-25 14:53] LABS: Alpha-1-Antitrypsin, QN 149 mg/dL (83-199)
--- NOTE | 2024-04-25 16:50 | WPDGIPROGNO ---
Progress Note: A&P Assessment and Plan (1) Choledocholithiasis: Code(s): K80.50 - Calculus of bile duct without cholangitis or cholecystitis without obstruction Status: Acute Assessment and Plan: clinically much better but MRCP show possible small stone in bile duct she is agreeable with ERCP tomorrow, there is a possibility that stone has not passed yet also will ask surgery to evaluate because GS pancreatitis (2) Gallstone pancreatitis: Code(s): K85.10 - Biliary acute pancreatitis without necrosis or infection Status: Acute (3) Elevated LFTs: Code(s): R79.89 - Other specified abnormal findings of blood chemistry Status: Acute Assessment and Plan: monitor, trending down (4) Upper abdominal pain: Code(s): R10.10 - Upper abdominal pain, unspecified Status: Acute Subjective Date/time seen: 04/25/24 16:50 Interval history: overall better Review of Systems Review of Systems: All systems reviewed & are unremarkable except as noted in HPI and below Exam Const: General: comfortable and no acute distress HENMT: Face/Nose/Sinus: Normal nares present Eyes: General: appearance normal, both eyes and all related structures Neck: Neck: supple Resp: Auscultation: clear to auscultation bilaterally Cardio: Rate: regular rate Rhythm: regular rhythm GI: Inspection: non-distended GI Palp: Yes Soft to palpation, Yes Tenderness to palpation present (GI) (mild ttp in epigastric, no rebound) and No Guarding due to palpation present (GI) Auscultation: normal bowel sounds Skin: General skin exam: normal color Neuro: Speech: normal speech Motor exam (neuro): 5/5 motor strength present throughout Extrem: General: normal to inspection Psych: Mental Status: mental status grossly normal Objective Data Vital Signs Vital Signs: Vital Signs - 24 hr 04/24/24 20:00 04/24/24 22:10 04/25/24 05:25 Temperature 98.3 F 98.2 F Pulse Rate 85 95 97 Respiratory Rate 16 16 20 Blood Pressure 130/67 124/81 Pulse Oximetry 98 98 97 Oxygen Delivery Room Air 04/25/24 08:11 04/25/24 14:00 Temperature 96.8 F L Pulse Rate 87 Respiratory Rate 20 Blood Pressure 144/87 H Pulse Oximetry 100 Oxygen Delivery Room Air Intake/Output Intake/Output: Intake & Output 04/22/24 04/23/24 04/24/24 04/25/24 23:59 23:59 23:59 23:59 Intake Total 1000 3075 400 Output Total 1000 Balance 1000 2075 400 Meds/Results Medications: Active Medications Generic Name Dose Route Start Last Admin Trade Name Freq PRN Reason Stop Dose Admin Enoxaparin Sodium 40 mg 04/24/24 09:00 04/25/24 08:11 Enoxaparin 40 Mg/0.4 Ml Syringe SUB-Q Not Given DAILY MARY ELLEN Sodium Chloride 1,000 mls @ 150 mls/hr 04/23/24 13:25 04/25/24 12:22 Normal Saline Iv IV CONT 150 mls/hr .[id number] MARY ELLEN Administration Indomethacin 50 mg 04/26/24 11:35 Indomethacin 50 Mg Supp.Rect RECTAL 04/26/24 11:36 ONCE ONE Morphine Sulfate 2 mg 04/23/24 13:24 04/23/24 20:37 Morphine Sulfate (*Crx) 2 Mg/Ml Inj IV PUSH 2 mg Q4H PRN Administration Pain Rated 7-10 Ondansetron HCl 4 mg 04/23/24 13:24 04/23/24 14:17 Ondansetron Inj 4 Mg/2 Ml Vial IV PUSH 4 mg Q6H PRN Administration Nausea And Vomiting Pantoprazole Sodium 40 mg 04/24/24 09:00 04/25/24 08:11 Pantoprazole Sodium Iv 40 Mg Vial IV PUSH 40 mg QAM MARY ELLEN Administration Radiology Results: ITS Impressions MRCP 04/24/24 07:17 Impression: Cholelithiasis. Gallbladder wall thickening could reflect superimposed acute cholecystitis. Consider HIDA scan as indicated. Mild acute pancreatitis. Possible tiny common bile duct stone, as detailed above. Hepatobiliary Scan Nuclear Medicine 04/25/24 11:49 IMPRESSION: 1. Gallbladder ejection fraction is at the lower limits of normal. This could be normal but is also within the range of overlap with gallbladder dysfunction or c
[2024-04-25 20:51] VITALS: BP 133/98; PULSE 88; RESP 20; TEMP 36; O2SAT 98
[2024-04-26] VITALS (10 sets, daily range): BP systolic 115–142; BP diastolic 73–92; PULSE 72–98; RESP 16–25; TEMP 35.6–37; O2SAT 95–99
[2024-04-26] MEDS: SODIUM CHLORIDE 0.9% IV 1,000 ML 150 ML IV CONT ×2 (03:43→16:08)
[2024-04-26 06:31] LABS: Basophils Percent Auto 0.5 % (0.2-1.2); Eosinophils Absolute Auto 0.2 K/mm3 (0-0.3); Eosinophils Percent Auto 2.3 % (0-4.4); Hematocrit 37.2 % (37.0-47.0); Hemoglobin 12.5 g/dL (12.0-15.0); Immature Granulocyte Absolute 0.05 K/mm3 (0.00-0.031); Immature Granulocyte Percent A 0.6 % (0-0.5); Lymphocytes Absolute Auto 1.29 K/mm3 (0.9-3.2); Lymphocytes Percent Auto 16.6 % (18.3-44.2); Mean Corpuscular HGB Conc 33.6 g/dl (32-36); Mean Corpuscular Hemoglobin 30.5 pg (26-34); Mean Corpuscular Volume 90.7 fl (80-100); Mean Platelet Volume 10.6 fl (7.4-10.4); Monocytes Absolute Auto 0.6 K/mm3 (0.1-0.6); Monocytes Percent Auto 8.1 % (2.6-8.5); Neutrophils Absolute Auto 5.6 K/mm3 (1.3-6.7); Neutrophils Percent Auto 71.9 % (45.5-73.1); Platelet Count Result 205 k/mm3 (150-375); Red Cell Distribution Width 12.5 % (11.5-14.5); White Blood Count 7.8 K/mm3 (4.5-10.0)
[2024-04-26 06:37] LABS: Alanine Aminotransferase 300 U/L (6-35); Albumin Level 3.8 g/dL (3.5-5.1); Alkaline Phosphatase 80 U/L (38-126); Anion Gap 8 mmol/L (4-12); Aspartate Amino Transferase 50 U/L (14-36); Bilirubin,Total 0.6 mg/dL (0.2-1.3); Blood Urea Nitrogen 6 mg/dL (7-17); Calcium 8.4 mg/dL (8.4-10.2); Carbon Dioxide 24 mmol/L (22-30); Chloride 107 mmol/L (98-107); Estimated CRCL calculation 79 ml/min; Estimated Glomerular Filt Rate > 60; Glucose 120 mg/dL (65-110); Potassium 3.3 mmol/L (3.4-5.0); Sodium 139 mmol/L (137-145)
[2024-04-26] MEDS: PANTOPRAZOLE SODIUM IV 40 MG VIAL IV PUSH (09:01)
[2024-04-26 09:32] LABS: Anti Nuclear Antibody Pattern Nuclear, Speckled; Anti Nuclear Antibody Titer 1:40 titer
--- NOTE | 2024-04-26 09:51 | PM.CNGS ---
Assessment and Plan Assessment and plan (1) Gallstone pancreatitis: Code(s): K85.10 - Biliary acute pancreatitis without necrosis or infection Status: Acute Assessment and Plan: Patient transferred from [facility] for acute pancreatitis, which appears to be improving. Etiology appears to be biliary. All imaging was reviewed. MRCP showed cholelithiasis with a possible common bile duct stone. LFTs elevated on presentation and have been trending down since admission with a normal bilirubin today. GI planning ERCP today. Discussed with the patient that we would recommend an interval laparoscopic cholecystectomy to prevent future episodes or complications from her gallstones. We discussed the details of the procedure, risks, benefits, alternatives, and expected recovery. We discussed the risks of bile leak and bile duct injury, liver/bowel injury, bleeding, and infection. Also discussed the possibility of having to convert to an open procedure if necessary. Her questions were answered and she agrees to proceed when appropriate. We will await ERCP results and follow along to decide on timing of surgery. (2) Choledocholithiasis: Code(s): K80.50 - Calculus of bile duct without cholangitis or cholecystitis without obstruction Status: Acute Assessment and Plan: ERCP today. (3) Cholelithiasis: Qualifiers: Cholelithiasis location: gallbladder and bile duct Cholecystitis acuity: unspecified acuity Biliary obstruction: without biliary obstruction Code(s): K80.20 - Calculus of gallbladder without cholecystitis without obstruction Status: Acute (4) Elevated LFTs: Code(s): R79.89 - Other specified abnormal findings of blood chemistry Status: Acute Assessment and Plan: Likely related to the possible common bile duct stone. See plan above. (5) Gastroesophageal reflux disease: Qualifiers: Esophagitis presence: esophagitis presence not specified Qualified Code(s): K21.9 - Gastro-esophageal reflux disease without esophagitis Code(s): K21.9 - Gastro-esophageal reflux disease without esophagitis Status: Acute Plan I have discussed the patient's case and plan of care with Dr. Prince. Thank you for allowing us to see the patient in consultation and we will continue to follow along with you. History of Present Illness Consult details Consult date: 04/26/24 Reason for consult: other (Gallstone pancreatitis) Requesting physician: Kendall Long MD Narrative: This is a 53-year-old woman with a PMH of GERD, who we have been asked to see in surgical consultation for gallstone pancreatitis. She reports having intermittent mild episodes of epigastric pain for the past 7 months. Typically pain would resolve in a few hours. She had another episode of epigastric pain starting 4 days ago that was more severe than her previous episodes. Pain did not improve overnight and ultimately brought her into [place] ED the following morning. She reports associated nausea, but no vomiting, fever, or chills. Workup in [place] ED was concerning for gallstone pancreatitis. Labs showed a white blood cell count of 7100, total bilirubin 2.6, AST greater than 796, ALT greater than 1000, alk-phos 118, and lipase 2839. CT scan of the abdomen and pelvis showed acute interstitial pancreatitis, dilation of the common bile duct and could not exclude a low-density gallstone. She was then transferred to [facility]. MRCP shows cholelithiasis, gallbladder wall thickening, mild acute pancreatitis, and possible tiny common bile duct stone. LFTs have been trending down and total bilirubin normal. Lipase trending down to 5531 2 days ago. GI following and planning an ERCP today. HIDA scan was also ordered that showed a gallbladder ejection fraction of 27%, which may indicate gallbladder dysfunction or chronic cholecystitis in the appropriate clinical setting. S
[2024-04-26] MEDS: POTASSIUM CHLORIDE INJ 40 MEQ in SODIUM CHLORIDE 0.9% IV 500 ML 130 MEQ IVPB (10:40)
--- NOTE | 2024-04-26 10:51 | PM.IMPN ---
Progress Note: A&P Assessment and Plan (1) Acute pancreatitis: Qualifiers: Acute pancreatitis complication: no infection or necrosis Pancreatitis type: idiopathic Qualified Code(s): K85.00 - Idiopathic acute pancreatitis without necrosis or infection Code(s): K85.90 - Acute pancreatitis without necrosis or infection, unspecified Status: Acute Assessment and Plan: - Abdomen/pelvis CT: Acute interstitial pancreatitis. Dilation of the common bile duct and could not exclude a low-density gallstones occult on CT. Consider MRCP for further evaluation. - MRCP: Cholelithiasis. Gallbladder wall thickening could reflect superimposed acute cholecystitis. Consider HIDA scan as indicated. Mild acute pancreatitis. Possible tiny common bile duct stone. - HIDA scan: Gallbladder ejection fraction is at the lower limits of normal. This could be normal but is also within the range of overlap with gallbladder dysfunction or chronic cholecystitis in the appropriate clinical setting. - Lipase 2839 on admission -> 97530 -> 5531 - Analgesics - IV fluid resuscitation - Continue bowel rest, advanced to clear liquids afterwards - GI consulted - Monitor I&Os, vital signs, - Monitor serum electrolytes, CBC, WBC, temperature curve - gi and surgery following (2) Transaminitis: Code(s): R74.01 - Elevation of levels of liver transaminase levels Status: Acute Assessment and Plan: Tot bili 2.6, AST >796, ALT >1000, alk phos 118 on admission. Concerning for common bile duct obstruction. No choledocholithiasis seen on imaging. Possible that the stone has passed. - LFTs downtrending with IV fluid resuscitation - GI consulted Liver workup ordered - Abdomen/pelvis CT: Acute interstitial pancreatitis. Dilation of the common bile duct and could not exclude a low-density gallstones occult on CT. Consider MRCP for further evaluation. - MRCP: Cholelithiasis. Gallbladder wall thickening could reflect superimposed acute cholecystitis. Consider HIDA scan as indicated. Mild acute pancreatitis. Possible tiny common bile duct stone. (3) Common bile duct dilatation: Code(s): K83.8 - Other specified diseases of biliary tract Status: Acute Assessment and Plan: See acute pancreatitis #1 and transaminitis #2 (4) Gastroesophageal reflux disease: Qualifiers: Esophagitis presence: esophagitis presence not specified Qualified Code(s): K21.9 - Gastro-esophageal reflux disease without esophagitis Code(s): K21.9 - Gastro-esophageal reflux disease without esophagitis Status: Acute Assessment and Plan: Chronic, well controlled on home medications. - Protonix 40 mg IV - Monitor Time Spent With Patient Time with patient: 25 - 35 minutes Subjective Date/time seen: 04/26/24 10:51 Interval history: This is a 53-year-old woman with a PMH of GERD, who we have been asked to see in surgical consultation for gallstone pancreatitis. She reports having intermittent mild episodes of epigastric pain for the past 7 months. Typically pain would resolve in a few hours. She had another episode of epigastric pain starting 4 days ago that was more severe than her previous episodes. Pain did not improve overnight and ultimately brought her into [place] ED the following morning. She reports associated nausea, but no vomiting, fever, or chills. Workup in [place] ED was concerning for gallstone pancreatitis. Labs showed a white blood cell count of 7100, total bilirubin 2.6, AST greater than 796, ALT greater than 1000, alk-phos 118, and lipase 2839. CT scan of the abdomen and pelvis showed acute interstitial pancreatitis, dilation of the common bile duct and could not exclude a low-density gallstone. She was then transferred to [facility] for GI Services. MRCP shows cholelithiasis, gallbladder wall thickening, mild acute pancreatitis, and possible tiny common bile duct stone. LFTs have been trending down and
[2024-04-26] MEDS: LACTATED RINGERS 1,000 ML 150 ML IV CONT (13:10)
--- NOTE | 2024-04-26 13:18 | WPDANESEPPF ---
Anes - Initial Pre Proc Eval Procedure: Operation Date: 04/26/24 12:00 Proposed Procedures p Endoscopic Retro Cholangiopancreatogram - Kendall Long MD Date/Time: 04/26/24 13:18 Surgeon: Evelyne Moody PA-C Pre Op Diagnosis: pancreatitis Patient Data Age: 53 Gender: F Height: 1.57 m Weight: 81.2 kg Last Vital Signs Temp 97.1 F L 04/26/24 13:12 Pulse 96 04/26/24 13:12 Resp 18 04/26/24 13:12 BP 142/92 H 04/26/24 13:12 Pulse Ox 99 04/26/24 13:12 O2 Del Method Room Air 04/26/24 13:12 Allergies Allergy/AdvReac Type Severity Reaction Status Date / Time No Known Allergies Allergy Verified 04/26/24 13:11 Home Medications Medication Instructions Recorded Confirmed Type pantoprazole 40 mg tablet,delayed 40 mg PO BID 04/23/24 04/23/24 History release Laboratory Tests 04/24/24 04/26/24 10:54 06:09 WBC 7.8 K/mm3 (4.5-10.0) RBC 4.10 L M/mm3 (4.2-5.4) Hgb 12.5 g/dL (12.0-15.0) Hct 37.2 % (37.0-47.0) MCV 90.7 fl (80-100) MCH 30.5 pg (26-34) MCHC 33.6 g/dl (32-36) RDW 12.5 % (11.5-14.5) Plt Count 205 k/mm3 (150-375) MPV 10.6 H fl (7.4-10.4) Immature Gran % (Auto) 0.6 H % (0-0.5) Neut % (Auto) 71.9 % (45.5-73.1) Lymph % (Auto) 16.6 L % (18.3-44.2) Henry % (Auto) 8.1 % (2.6-8.5) Eos % (Auto) 2.3 % (0-4.4) Baso % (Auto) 0.5 % (0.2-1.2) Lymph # (Auto) 1.29 K/mm3 (0.9-3.2) Henry # (Auto) 0.6 K/mm3 (0.1-0.6) Eos # (Auto) 0.2 K/mm3 (0-0.3) Baso # (Auto) 0.0 K/mm3 (0.0-0.1) Abs Immat Gran (auto) 0.05 H K/mm3 (0.00-0.031) Absolute Neuts (auto) 5.6 K/mm3 (1.3-6.7) Absolute Nucleated RBC 0.000 K/mm3 (0.0-0.012) Nucleated RBC % 0.0 % (0.0-0.2) Sodium 139 mmol/L (137-145) Potassium 3.3 L mmol/L (3.4-5.0) Chloride 107 mmol/L (98-107) Carbon Dioxide 24 mmol/L (22-30) Anion Gap 8 mmol/L (4-12) BUN 6 L mg/dL (7-17) Creatinine 0.70 mg/dL (0.7-1.0) Estim Creat Clear Calc 79 ml/min Estimated GFR > 60 (59 - ) Glucose 120 H mg/dL (65-110) Calcium 8.4 mg/dL (8.4-10.2) Total Bilirubin 0.6 mg/dL (0.2-1.3) AST 50 H U/L (14-36) ALT 300 H U/L (6-35) Alkaline Phosphatase 80 U/L (38-126) Total Protein 7.0 g/dL (6.3-8.2) Albumin 3.8 g/dL (3.5-5.1) Blduv-3-Xoksndipsrg 149 mg/dL (83-199) Ceruloplasmin 25 mg/dL (14-48) MITCHEL Screen Positive A (NEGATIVE) MITCHEL Titer 1:40 H titer MITCHEL Pattern Nuclear, speckled A CMV IgG Ab >10.00 H U/mL CMV IgM Ab <30.00 AU/mL Patient hx anesthesia problems: none Family hx anesthesia problems: none Results Review: All pre-operative results and documents have been reviewed as part of the pre-operative evaluation. [facility] Past Medical History Medical History Cervical spondylosis Choledocholithiasis Chronic headaches Foraminal stenosis of cervical region Gallstone pancreatitis Gastroesophageal reflux disease Upper abdominal pain Surgical History Surgical History History of hysterectomy laparoscopic total abdominal hysterectomy History of lumbar laminectomy Family History Family History Other Lung cancer Thyroid disease Social History Social History Social History: Surrogate medical decision maker: Roxi Morillo, daughter. Code status: Full code. Smoking status: Never smoker Alcohol intake: current Drinks per week: 5 Substance use: never Substance use type: does not use Do You Feel Safe
[2024-04-26 14:08] LABS: Immunoglobulin G, Serum 701 mg/dL (600-1640); Immunoglobulin G1 453 mg/dL (382-929); Immunoglobulin G2 172 mg/dL (241-700); Immunoglobulin G3 40 mg/dL (22-178); Immunoglobulin G4 17.2 mg/dL (4.0-86.0)
[2024-04-26] MEDS: MORPHINE SULFATE (*CRX) 2 MG/ML INJ IV PUSH (18:35)
[2024-04-27] MEDS: SODIUM CHLORIDE 0.9% IV 1,000 ML 150 ML IV CONT ×2 (00:27→06:37)
[2024-04-27 01:09] LABS: EVB DNA,QN PCR NOT DETECTED; Epstein Barr Virus PCR NOT DETECTED copies/mL; Source WHOLE BLOOD
[2024-04-27 05:32] VITALS: BP 122/78; PULSE 81; RESP 16; TEMP 36.8; O2SAT 99
[2024-04-27 06:31] LABS: Basophils Percent Auto 0.5 % (0.2-1.2); Eosinophils Percent Auto 0.5 % (0-4.4); Hematocrit 35.8 % (37.0-47.0); Immature Granulocyte Absolute 0.02 K/mm3 (0.00-0.031); Immature Granulocyte Percent A 0.3 % (0-0.5); Lymphocytes Absolute Auto 1.07 K/mm3 (0.9-3.2); Lymphocytes Percent Auto 17.7 % (18.3-44.2); Mean Corpuscular HGB Conc 33.5 g/dl (32-36); Mean Corpuscular Volume 92.5 fl (80-100); Mean Platelet Volume 10.9 fl (7.4-10.4); Monocytes Absolute Auto 0.4 K/mm3 (0.1-0.6); Monocytes Percent Auto 7.1 % (2.6-8.5); Neutrophils Absolute Auto 4.5 K/mm3 (1.3-6.7); Neutrophils Percent Auto 73.9 % (45.5-73.1); Platelet Count Result 214 k/mm3 (150-375); Red Blood Count 3.87 M/mm3 (4.2-5.4); Red Cell Distribution Width 12.5 % (11.5-14.5); White Blood Count 6.1 K/mm3 (4.5-10.0)
[2024-04-27 06:40] LABS: Alanine Aminotransferase 265 U/L (6-35); Albumin Level 3.8 g/dL (3.5-5.1); Alkaline Phosphatase 97 U/L (38-126); Anion Gap 9 mmol/L (4-12); Aspartate Amino Transferase 103 U/L (14-36); Bilirubin,Total 0.9 mg/dL (0.2-1.3); Blood Urea Nitrogen 7 mg/dL (7-17); Calcium 8.5 mg/dL (8.4-10.2); Carbon Dioxide 25 mmol/L (22-30); Chloride 107 mmol/L (98-107); Estimated CRCL calculation 79 ml/min; Estimated Glomerular Filt Rate > 60; Glucose 110 mg/dL (65-110); Potassium 3.5 mmol/L (3.4-5.0); Sodium 141 mmol/L (137-145)
[2024-04-27] MEDS: PANTOPRAZOLE SODIUM IV 40 MG VIAL IV PUSH (09:21)
--- NOTE | 2024-04-27 09:45 | PM.PNGS ---
Progress Note: A&P Assessment and Plan (1) Cholelithiasis: Qualifiers: Cholelithiasis location: gallbladder and bile duct Cholecystitis acuity: unspecified acuity Biliary obstruction: without biliary obstruction Code(s): K80.20 - Calculus of gallbladder without cholecystitis without obstruction Status: Acute Assessment and Plan: Patient doing well following ERCP. We will plan to proceed with laparoscopic cholecystectomy tomorrow by Dr. Prince. Advance to a low-fat diet today and make her NPO after midnight. (2) Gallstone pancreatitis: Code(s): K85.10 - Biliary acute pancreatitis without necrosis or infection Status: Acute Assessment and Plan: Resolving. No longer having any abdominal pain or nausea. (3) Choledocholithiasis: Code(s): K80.50 - Calculus of bile duct without cholangitis or cholecystitis without obstruction Status: Acute Assessment and Plan: Status post ERCP with sphincterotomy yesterday. No stones found in the common bile duct. (4) Elevated LFTs: Code(s): R79.89 - Other specified abnormal findings of blood chemistry Status: Acute Plan I have discussed the patient's case and plan of care with Dr. Prince. Subjective Subjective Date/Time Seen: 04/27/24 09:45 Patient reports: no new complaints Interval history: Patient doing well this morning following ERCP yesterday. She denies any abdominal pain, nausea, or vomiting. She feels hungry this morning. No acute complaints overnight. Exam Const: General: comfortable and no acute distress Orientation/consciousness: patient oriented x3 GI: Inspection: non-distended GI Palp: Yes Soft to palpation, No Tenderness to palpation present (GI) and No Guarding due to palpation present (GI) Auscultation: normal bowel sounds Objective Data Vital Signs Vital Signs: Vital Signs - 24 hr 04/26/24 13:12 04/26/24 13:57 04/26/24 14:07 Temperature 97.1 F L Pulse Rate 96 98 88 Respiratory Rate 18 25 H 21 H Blood Pressure 142/92 H 117/73 125/77 Pulse Oximetry 99 97 98 Oxygen Delivery Room Air Simple Face Mask Room Air Oxygen Flow Rate 2 04/26/24 14:17 04/26/24 14:27 04/26/24 14:37 Temperature Pulse Rate 83 79 72 Respiratory Rate 21 H 22 H 17 Blood Pressure 115/75 131/79 125/78 Pulse Oximetry 96 97 99 Oxygen Delivery Room Air Room Air Room Air Oxygen Flow Rate 04/26/24 14:47 04/26/24 14:00 04/26/24 20:00 Temperature 97.1 F L Pulse Rate 75 80 Respiratory Rate 21 H 18 Blood Pressure 122/82 134/86 Pulse Oximetry 98 97 Oxygen Delivery Room Air Room Air Oxygen Flow Rate 04/26/24 21:55 04/27/24 05:32 Temperature 98.6 F 98.2 F Pulse Rate 87 81 Respiratory Rate 16 16 Blood Pressure 127/89 122/78 Pulse Oximetry 95 99 Oxygen Delivery Oxygen Flow Rate Intake/Output Intake/Output: Intake & Output 04/24/24 04/25/24 04/26/24 04/27/24 23:59 23:59 23:59 23:59 Intake Total 3075 2360 3708.0 1175 Output Total 1000 Balance 2075 2360 3708.0 1175 Meds/Results Medications: Active Medications Generic Name Dose Route Start Last Admin Trade Name Freq PRN Reason Stop Dose Admin Enoxaparin Sodium 40 mg 04/24/24 09:00 04/26/24 15:35 Enoxaparin 40 Mg/0.4 Ml Syringe SUB-Q Not Given DAILY MARY ELLEN Sodium Chloride 1,000 mls @ 150 mls/hr 04/23/24 13:25 04/27/24 06:37 Normal Saline Iv IV CONT 150 mls/hr .Q6H40M MARY ELLEN Administration Morphine Sulfate 2 mg 04/23/24 13:24 04/26/24 18:35 Morphine Sulfate (*Crx) 2 Mg/Ml Inj IV PUSH 2 mg Q4H PRN Administration Pain Rated 7-10 Ondansetron HCl 4 mg 04/23/24 13:24 04/23/24 14:17 Ondansetron Inj 4 Mg/2 Ml Vial IV PUSH 4 mg Q6H PRN Administration Nausea And Vomiting Pantoprazole Sodium 40 mg 04/24/24 09:00 04/27/24 09:21 Pantoprazole Sodium Iv 40 Mg Vial IV PUSH 40 mg QAM MARY ELLEN Administration Radiology Results: ITS Impressions MRCP
[2024-04-27 10:24] LABS: Herpes Simplex Type 1 DNA PCR NOT DETECTED; Herpes Simplex Type 2 DNA PCR NOT DETECTED
--- NOTE | 2024-04-27 11:22 | PM.IMPN ---
Progress Note: A&P Assessment and Plan (1) Acute pancreatitis: Qualifiers: Acute pancreatitis complication: no infection or necrosis Pancreatitis type: idiopathic Qualified Code(s): K85.00 - Idiopathic acute pancreatitis without necrosis or infection Code(s): K85.90 - Acute pancreatitis without necrosis or infection, unspecified Status: Acute Assessment and Plan: - Abdomen/pelvis CT: Acute interstitial pancreatitis. Dilation of the common bile duct and could not exclude a low-density gallstones occult on CT. Consider MRCP for further evaluation. - MRCP: Cholelithiasis. Gallbladder wall thickening could reflect superimposed acute cholecystitis. Consider HIDA scan as indicated. Mild acute pancreatitis. Possible tiny common bile duct stone. - HIDA scan: Gallbladder ejection fraction is at the lower limits of normal. This could be normal but is also within the range of overlap with gallbladder dysfunction or chronic cholecystitis in the appropriate clinical setting. - Lipase 2839 on admission -> 51559 -> 5531 - Analgesics - IV fluid resuscitation - Continue bowel rest, advanced to clear liquids afterwards - GI consulted - Monitor I&Os, vital signs, - Monitor serum electrolytes, CBC, WBC, temperature curve - gi and surgery following 04/27-doing well following ERCP. Plan for laparoscopic cholecystectomy tomorrow by Dr. Prince. Advance to a low-fat diet today and NPO after midnight. (2) Transaminitis: Code(s): R74.01 - Elevation of levels of liver transaminase levels Status: Acute Assessment and Plan: Tot bili 2.6, AST >796, ALT >1000, alk phos 118 on admission. Concerning for common bile duct obstruction. No choledocholithiasis seen on imaging. Possible that the stone has passed. - LFTs downtrending with IV fluid resuscitation - GI consulted Liver workup ordered - Abdomen/pelvis CT: Acute interstitial pancreatitis. Dilation of the common bile duct and could not exclude a low-density gallstones occult on CT. Consider MRCP for further evaluation. - MRCP: Cholelithiasis. Gallbladder wall thickening could reflect superimposed acute cholecystitis. Consider HIDA scan as indicated. Mild acute pancreatitis. Possible tiny common bile duct stone. (3) Common bile duct dilatation: Code(s): K83.8 - Other specified diseases of biliary tract Status: Acute Assessment and Plan: See acute pancreatitis #1 and transaminitis #2 (4) Gastroesophageal reflux disease: Qualifiers: Esophagitis presence: esophagitis presence not specified Qualified Code(s): K21.9 - Gastro-esophageal reflux disease without esophagitis Code(s): K21.9 - Gastro-esophageal reflux disease without esophagitis Status: Acute Assessment and Plan: Chronic, well controlled on home medications. - Protonix 40 mg IV - Monitor Time Spent With Patient Time with patient: 25 - 35 minutes Subjective Date/time seen: 04/27/24 11:22 Interval history: This is a 53-year-old woman with a PMH of GERD, who we have been asked to see in surgical consultation for gallstone pancreatitis. She reports having intermittent mild episodes of epigastric pain for the past 7 months. Typically pain would resolve in a few hours. She had another episode of epigastric pain starting 4 days ago that was more severe than her previous episodes. Pain did not improve overnight and ultimately brought her into [place] ED the following morning. She reports associated nausea, but no vomiting, fever, or chills. Workup in [place] ED was concerning for gallstone pancreatitis. Labs showed a white blood cell count of 7100, total bilirubin 2.6, AST greater than 796, ALT greater than 1000, alk-phos 118, and lipase 2839. CT scan of the abdomen and pelvis showed acute interstitial pancreatitis, dilation of the common bile duct and could not exclude a low-density gallstone. She was then transferred to [facility] for GI Services. Tonia
[2024-04-27 14:00] VITALS: BP 132/79; PULSE 85; RESP 16; TEMP 36.1; O2SAT 100
[2024-04-27] MEDS: polyethylene glycoL 3350 17 GM POWD.PACK PO (17:08)
--- NOTE | 2024-04-27 17:33 | WPDGIPROGNO ---
Progress Note: A&P Assessment and Plan (1) Gallstone pancreatitis: Code(s): K85.10 - Biliary acute pancreatitis without necrosis or infection Status: Acute Assessment and Plan: symptomatically much better s/p ercp, no complications and denies any more abdominal pain lap yanira tomorrow (2) Choledocholithiasis: Code(s): K80.50 - Calculus of bile duct without cholangitis or cholecystitis without obstruction Status: Acute Assessment and Plan: s/p ercp no major findings (3) Upper abdominal pain: Code(s): R10.10 - Upper abdominal pain, unspecified Status: Acute Assessment and Plan: resolved (4) Elevated LFTs: Code(s): R79.89 - Other specified abnormal findings of blood chemistry Status: Acute Assessment and Plan: expect to keep trending down Subjective Date/time seen: 04/27/24 17:33 Interval history: she is comfortable, no pain ercp yesterday with sphincterotomy, no stone found but bile duct swept multiple times Review of Systems Review of Systems: All systems reviewed & are unremarkable except as noted in HPI and below Exam Const: General: comfortable and no acute distress HENMT: Face/Nose/Sinus: Normal nares present Eyes: General: appearance normal, both eyes and all related structures Neck: Neck: supple Resp: Auscultation: clear to auscultation bilaterally Cardio: Rate: regular rate Rhythm: regular rhythm GI: Inspection: non-distended GI Palp: Yes Soft to palpation and No Tenderness to palpation present (GI) Auscultation: normal bowel sounds Skin: General skin exam: normal color Neuro: Speech: normal speech Motor exam (neuro): 5/5 motor strength present throughout Extrem: General: normal to inspection Psych: Mental Status: mental status grossly normal Objective Data Vital Signs Vital Signs: Vital Signs - 24 hr 04/26/24 20:00 04/26/24 21:55 04/27/24 05:32 Temperature 98.6 F 98.2 F Pulse Rate 87 81 Respiratory Rate 16 16 Blood Pressure 127/89 122/78 Pulse Oximetry 95 99 Oxygen Delivery Room Air 04/27/24 14:00 Temperature 96.9 F L Pulse Rate 85 Respiratory Rate 16 Blood Pressure 132/79 Pulse Oximetry 100 Oxygen Delivery Intake/Output Intake/Output: Intake & Output 04/24/24 04/25/24 04/26/24 04/27/24 23:59 23:59 23:59 23:59 Intake Total 3075 2360 3708.0 1175 Output Total 1000 Balance 2075 2360 3708.0 1175 Meds/Results Medications: Active Medications Generic Name Dose Route Start Last Admin Trade Name Freq PRN Reason Stop Dose Admin Enoxaparin Sodium 40 mg 04/24/24 09:00 04/27/24 09:47 Enoxaparin 40 Mg/0.4 Ml Syringe SUB-Q Not Given DAILY MARY ELLEN Sodium Chloride 1,000 mls @ 150 mls/hr 04/23/24 13:25 04/27/24 06:37 Normal Saline Iv IV CONT 150 mls/hr .Q6H40M MARY ELLEN Administration Morphine Sulfate 2 mg 04/23/24 13:24 04/26/24 18:35 Morphine Sulfate (*Crx) 2 Mg/Ml Inj IV PUSH 2 mg Q4H PRN Administration Pain Rated 7-10 Ondansetron HCl 4 mg 04/23/24 13:24 04/23/24 14:17 Ondansetron Inj 4 Mg/2 Ml Vial IV PUSH 4 mg Q6H PRN Administration Nausea And Vomiting Pantoprazole Sodium 40 mg 04/24/24 09:00 04/27/24 09:21 Pantoprazole Sodium Iv 40 Mg Vial IV PUSH 40 mg QAM MARY ELLEN Administration Polyethylene Glycol 17 gm 04/27/24 14:22 04/27/24 17:08 Polyethylene Glycol 3350 17 Gm Powd.Pack PO 17 gm QAM PRN Administration Constipation Radiology Results: ITS Impressions MRCP 04/24/24 07:17 Impression: Cholelithiasis. Gallbladder wall thickening could reflect superimposed acute cholecystitis. Consider HIDA scan as indicated. Mild acute pancreatitis. Possible tiny common bile duct stone, as detailed above. Hepatobiliary Scan Nuclear Medicine 04/25/24 11:49 IMPRESSION: 1. Gallbladder ejection fraction is at the lower limits of normal. This could be normal but is also within the range of
[2024-04-27 19:55] VITALS: BP 134/86; PULSE 82; RESP 20; TEMP 36.1; O2SAT 100
[2024-04-27 23:19] LABS: Actin Antibody (IgG) <20 U (<20)
[2024-04-28] VITALS (13 sets, daily range): BP systolic 119–145; BP diastolic 74–95; PULSE 66–86; RESP 12–18; TEMP 36.1–37; O2SAT 93–100
[2024-04-28 06:28] LABS: Basophils Percent Auto 0.6 % (0.2-1.2); Eosinophils Absolute Auto 0.2 K/mm3 (0-0.3); Eosinophils Percent Auto 3.9 % (0-4.4); Hematocrit 35.2 % (37.0-47.0); Hemoglobin 11.7 g/dL (12.0-15.0); Immature Granulocyte Absolute 0.02 K/mm3 (0.00-0.031); Immature Granulocyte Percent A 0.4 % (0-0.5); Mean Corpuscular HGB Conc 33.2 g/dl (32-36); Mean Corpuscular Hemoglobin 30.9 pg (26-34); Mean Corpuscular Volume 92.9 fl (80-100); Mean Platelet Volume 10.8 fl (7.4-10.4); Monocytes Absolute Auto 0.4 K/mm3 (0.1-0.6); Monocytes Percent Auto 7.5 % (2.6-8.5); Neutrophils Absolute Auto 3.1 K/mm3 (1.3-6.7); Neutrophils Percent Auto 57.6 % (45.5-73.1); Platelet Count Result 244 k/mm3 (150-375); Red Blood Count 3.79 M/mm3 (4.2-5.4); Red Cell Distribution Width 12.6 % (11.5-14.5); White Blood Count 5.3 K/mm3 (4.5-10.0)
--- NOTE | 2024-04-28 06:43 | PM.IMPN ---
Progress Note: A&P Assessment and Plan (1) Acute pancreatitis: Qualifiers: Acute pancreatitis complication: no infection or necrosis Pancreatitis type: idiopathic Qualified Code(s): K85.00 - Idiopathic acute pancreatitis without necrosis or infection Code(s): K85.90 - Acute pancreatitis without necrosis or infection, unspecified Status: Acute Assessment and Plan: - Abdomen/pelvis CT: Acute interstitial pancreatitis. Dilation of the common bile duct and could not exclude a low-density gallstones occult on CT. Consider MRCP for further evaluation. - MRCP: Cholelithiasis. Gallbladder wall thickening could reflect superimposed acute cholecystitis. Consider HIDA scan as indicated. Mild acute pancreatitis. Possible tiny common bile duct stone. - HIDA scan: Gallbladder ejection fraction is at the lower limits of normal. This could be normal but is also within the range of overlap with gallbladder dysfunction or chronic cholecystitis in the appropriate clinical setting. - Lipase 2839 on admission -> 21016 -> 5531 - Analgesics - IV fluid resuscitation - Continue bowel rest, advanced to clear liquids afterwards - GI consulted - Monitor I&Os, vital signs, - Monitor serum electrolytes, CBC, WBC, temperature curve - gi and surgery following 04/27-doing well following ERCP. Plan for laparoscopic cholecystectomy tomorrow by Dr. Prince. Advance to a low-fat diet today and NPO after midnight. (2) Transaminitis: Code(s): R74.01 - Elevation of levels of liver transaminase levels Status: Acute Assessment and Plan: Tot bili 2.6, AST >796, ALT >1000, alk phos 118 on admission. Concerning for common bile duct obstruction. No choledocholithiasis seen on imaging. Possible that the stone has passed. - LFTs downtrending with IV fluid resuscitation - GI consulted Liver workup ordered - Abdomen/pelvis CT: Acute interstitial pancreatitis. Dilation of the common bile duct and could not exclude a low-density gallstones occult on CT. Consider MRCP for further evaluation. - MRCP: Cholelithiasis. Gallbladder wall thickening could reflect superimposed acute cholecystitis. Consider HIDA scan as indicated. Mild acute pancreatitis. Possible tiny common bile duct stone. (3) Common bile duct dilatation: Code(s): K83.8 - Other specified diseases of biliary tract Status: Acute Assessment and Plan: See acute pancreatitis #1 and transaminitis #2 (4) Gastroesophageal reflux disease: Qualifiers: Esophagitis presence: esophagitis presence not specified Qualified Code(s): K21.9 - Gastro-esophageal reflux disease without esophagitis Code(s): K21.9 - Gastro-esophageal reflux disease without esophagitis Status: Acute Assessment and Plan: Chronic, well controlled on home medications. - Protonix 40 mg IV - Monitor Time Spent With Patient Time with patient: 25 - 35 minutes Subjective Date/time seen: 04/28/24 06:43 Interval history: Interval history: This is a 53-year-old woman with a PMH of GERD, who we have been asked to see in surgical consultation for gallstone pancreatitis. She reports having intermittent mild episodes of epigastric pain for the past 7 months. Typically pain would resolve in a few hours. She had another episode of epigastric pain starting 4 days ago that was more severe than her previous episodes. Pain did not improve overnight and ultimately brought her into [place] ED the following morning. She reports associated nausea, but no vomiting, fever, or chills. Workup in [place] ED was concerning for gallstone pancreatitis. Labs showed a white blood cell count of 7100, total bilirubin 2.6, AST greater than 796, ALT greater than 1000, alk-phos 118, and lipase 2839. CT scan of the abdomen and pelvis showed acute interstitial pancreatitis, dilation of the common bile duct and could not exclude a low-density gallstone. She was then transferred to [facility]
[2024-04-28 06:50] LABS: Alanine Aminotransferase 206 U/L (6-35); Albumin Level 3.5 g/dL (3.5-5.1); Alkaline Phosphatase 91 U/L (38-126); Anion Gap 9 mmol/L (4-12); Aspartate Amino Transferase 50 U/L (14-36); Bilirubin,Total 0.5 mg/dL (0.2-1.3); Blood Urea Nitrogen 12 mg/dL (7-17); Calcium 8.8 mg/dL (8.4-10.2); Carbon Dioxide 24 mmol/L (22-30); Chloride 106 mmol/L (98-107); Estimated CRCL calculation 80 ml/min; Estimated Glomerular Filt Rate > 60; Glucose 97 mg/dL (65-110); Potassium 3.2 mmol/L (3.4-5.0); Sodium 139 mmol/L (137-145)
[2024-04-28] MEDS: POTASSIUM CHLORIDE INJ 40 MEQ in SODIUM CHLORIDE 0.9% IV 500 ML 130 MEQ IVPB (08:33)
[2024-04-28] MEDS: PANTOPRAZOLE SODIUM IV 40 MG VIAL IV PUSH (08:34)
--- NOTE | 2024-04-28 11:03 | WPDANESEPPF ---
Anes - Initial Pre Proc Eval Procedure: Operation Date: 04/26/24 12:00 Proposed Procedures p Endoscopic Retro Cholangiopancreatogram - Kendall Long MD Operation Date: 04/28/24 12:00 Proposed Procedures p Laparoscopic Cholecystectomy, Possible Open - Magdiel Prince DO Date/Time: 04/28/24 11:03 Surgeon: Evelyne Moody PA-C Pre Op Diagnosis: pancreatitis Patient Data Age: 53 Gender: F Height: 1.57 m Weight: 83.3 kg Last Vital Signs Temp 37.0 C 04/28/24 10:50 Pulse 72 04/28/24 10:50 Resp 14 04/28/24 10:50 BP 127/86 04/28/24 10:50 Pulse Ox 100 04/28/24 10:50 O2 Del Method Room Air 04/28/24 10:50 O2 Flow Rate 2 04/26/24 13:57 Allergies Allergy/AdvReac Type Severity Reaction Status Date / Time No Known Allergies Allergy Verified 04/26/24 13:11 Home Medications Medication Instructions Recorded Confirmed Type pantoprazole 40 mg tablet,delayed 40 mg PO BID 04/23/24 04/23/24 History release Laboratory Tests 04/24/24 04/28/24 10:54 05:40 WBC 5.3 K/mm3 (4.5-10.0) RBC 3.79 L M/mm3 (4.2-5.4) Hgb 11.7 L g/dL (12.0-15.0) Hct 35.2 L % (37.0-47.0) MCV 92.9 fl (80-100) MCH 30.9 pg (26-34) MCHC 33.2 g/dl (32-36) RDW 12.6 % (11.5-14.5) Plt Count 244 k/mm3 (150-375) MPV 10.8 H fl (7.4-10.4) Immature Gran % (Auto) 0.4 % (0-0.5) Neut % (Auto) 57.6 % (45.5-73.1) Lymph % (Auto) 30.0 % (18.3-44.2) [place] % (Auto) 7.5 % (2.6-8.5) Eos % (Auto) 3.9 % (0-4.4) Baso % (Auto) 0.6 % (0.2-1.2) Lymph # (Auto) 1.60 K/mm3 (0.9-3.2) [place] # (Auto) 0.4 K/mm3 (0.1-0.6) Eos # (Auto) 0.2 K/mm3 (0-0.3) Baso # (Auto) 0.0 K/mm3 (0.0-0.1) Abs Immat Gran (auto) 0.02 K/mm3 (0.00-0.031) Absolute Neuts (auto) 3.1 K/mm3 (1.3-6.7) Absolute Nucleated RBC 0.000 K/mm3 (0.0-0.012) Nucleated RBC % 0.0 % (0.0-0.2) Sodium 139 mmol/L (137-145) Potassium 3.2 L mmol/L (3.4-5.0) Chloride 106 mmol/L (98-107) Carbon Dioxide 24 mmol/L (22-30) Anion Gap 9 mmol/L (4-12) BUN 12 D mg/dL (7-17) Creatinine 0.70 mg/dL (0.7-1.0) Estim Creat Clear Calc 80 ml/min Estimated GFR > 60 (59 - ) Glucose 97 mg/dL (65-110) Calcium 8.8 mg/dL (8.4-10.2) Total Bilirubin 0.5 mg/dL (0.2-1.3) AST 50 H U/L (14-36) ALT 206 H U/L (6-35) Alkaline Phosphatase 91 U/L (38-126) Total Protein 6.0 L g/dL (6.3-8.2) Albumin 3.5 g/dL (3.5-5.1) Actin IgG Antibody <20 U (<20) Patient hx anesthesia problems: none Family hx anesthesia problems: none Results Review: All pre-operative results and documents have been reviewed as part of the pre-operative evaluation. [facility] Past Medical History Medical History Cervical spondylosis Choledocholithiasis Chronic headaches Foraminal stenosis of cervical region Gallstone pancreatitis Gastroesophageal reflux disease Upper abdominal pain Surgical History Surgical History History of hysterectomy laparoscopic total abdominal hysterectomy History of lumbar laminectomy Family History Family History Other Lung cancer Thyroid disease Social History Social History Social History: Surrogate medical decision maker: Roxi Morillo, daughter. Code status: Full code. Smoking status: Never smoker Alcohol intake: current Drinks per week: 5 Substance use: never Substance use type: does not use Do You Feel Safe in your Home?: Yes Lack of Transportation: No Lack of Food: Never True Cu
[2024-04-28] MEDS: LACTATED RINGERS 1,000 ML 30 ML IV CONT (11:05)
--- NOTE | 2024-04-28 11:23 | WPDHPUPDATE1 ---
History and Physical Update Update Date/Time: 04/28/24 11:23 History and Physical has been reviewed, including an updated exam of the patient. There are NO changes in the patient's condition. Risks, benefits, and alternatives have been discussed and questions answered. Patient agrees to proceed with procedure.
[2024-04-28] MEDS: ACETAMINOPHEN 500 MG TABLET 1000 MG PO (11:30)
[2024-04-28] MEDS: KETOROLAC 15 MG/ML VIAL (*BKC) IV PUSH (11:30)
[2024-04-28] MEDS: ceFAZolin 2 GM/D5W 50 ML 2 GM/50 ML BAG IVPB (11:54)
[2024-04-28] MEDS: BUPIVACAINE/EPINEPHRINE 0.5% 50 ML VIAL 30 ML INFILTRATE (12:15)
--- NOTE | 2024-04-28 12:47 | W.PM.PROC2 ---
Procedure Note - Detailed Date of Procedure 04/28/24 Pre-op Diagnosis Gallstone pancreatitis Post-op Diagnosis Same Procedure Performed Laparoscopic Cholecystectomy Surgeon Magdiel Prince, DO Anesthesia General and Local (0.5% bupivacaine) Indications This is a 53-year-old woman who presented to the emergency department with epigastric abdominal pain. She was found to have evidence of acute pancreatitis and was also found to have possible choledocholithiasis. She underwent ERCP 2 days ago. She was recovering well from this and discussions were made with the patient about further treatment options. Decision was made to proceed with laparoscopic cholecystectomy, possible open. Findings Laparoscopic cholecystectomy was performed. The gallbladder was slightly dilated but appeared to taper down to normal size and had a normal appearing cystic duct. No other significant abnormalities were noted. The gallbladder was removed and sent to the lab for pathology. Patient did have some bleeding at the epigastric port site just underneath the dermis. This was controlled with electrocautery and no other significant bleeding was noted. Description of Procedure Procedure as well as risks, benefits, and alternatives were discussed with patient. Written consent was obtained and placed in chart prior to procedure. The patient was brought back to surgical suite. Patient was placed in supine position on operating table. Time-out was done to confirm patient and procedure. Patient was then intubated by the anesthesia department. Abdomen was prepped and draped in sterile fashion using chlorhexidine prep. 0.5% bupivacaine with epinephrine was infiltrated at each site of incision. A 5 millimeter incision was made near the umbilicus, and a 5 millimeter Optiview trocar was advanced through the abdominal layers under direct visualization. Once inside the abdominal cavity, carbon dioxide was insufflated to create a pneumoperitoneum. The camera was inserted and the abdomen was inspected. No immediate abnormalities were identified. The patient was placed in reverse Trendelenburg position and rotated slightly to the left. An 11 millimeter incision was made in the subxiphoid region, and an 11 millimeter trocar was inserted under direct visualization. Two 5 millimeter incisions were made in the right upper quadrant, and two 5 millimeter trocars were inserted under direct visualization. The gallbladder was identified and grasped at the fundus and retracted superiorly. It was then grasped at the infundibulum retracted laterally. Careful dissection around the neck of the gallbladder was performed using blunt dissection with a [place] grasper and hook electrocautery. The cystic duct was identified, and a window was created behind it. The cystic artery was also identified and a window was created behind it. The critical view of safety was identified, visualizing the cystic duct running directly into the neck of the gallbladder, and the cystic artery running directly into the wall of the gallbladder. A 5 millimeter clip computer hardware designer was then used to place 2 clips proximally and 1 clip distally on both the cystic duct and cystic artery. They were then both transected using endoscopic scissors. Once safely away from the clarita hepatitis, the gallbladder was dissected free from the liver bed using hook electrocautery. Hemostasis was achieved along the way. The gallbladder was removed completely and then removed through the subxiphoid port. The liver bed was then inspected. Hemostasis appeared adequate, and our clips appeared secure. The area was gently irrigated with sterile saline. No other abnormalities were seen. The patient was flattened out in bed, and 1 final inspection was made around the abdominal cavity. The subxiphoid port was removed, and a Jonathan Magdiel cone was used to approximate the fascia with an 0-Vicryl simple interrupted suture. The remaining ports were then removed
[2024-04-28] MEDS: ONDANSETRON INJ 4 MG/2 ML VIAL IV PUSH (12:53)
--- NOTE | 2024-04-28 14:15 | PM.DS ---
DS: Admitting Diagnosis Discharge Date 04/28 Admitting Diagnosis abd pain DS: Discharge Diagnosis Discharge Diagnosis (1) Acute pancreatitis: Qualifiers: Pancreatitis type: idiopathic Acute pancreatitis complication: no infection or necrosis Qualified Code(s): K85.00 - Idiopathic acute pancreatitis without necrosis or infection Code(s): K85.90 - Acute pancreatitis without necrosis or infection, unspecified Status: Acute Assessment and Plan: - Abdomen/pelvis CT: Acute interstitial pancreatitis. Dilation of the common bile duct and could not exclude a low-density gallstones occult on CT. Consider MRCP for further evaluation. - MRCP: Cholelithiasis. Gallbladder wall thickening could reflect superimposed acute cholecystitis. Consider HIDA scan as indicated. Mild acute pancreatitis. Possible tiny common bile duct stone. - HIDA scan: Gallbladder ejection fraction is at the lower limits of normal. This could be normal but is also within the range of overlap with gallbladder dysfunction or chronic cholecystitis in the appropriate clinical setting. - Lipase 2839 on admission -> 64769 -> 5531 - Analgesics - IV fluid resuscitation - Continue bowel rest, advanced to clear liquids afterwards - GI consulted - Monitor I&Os, vital signs, - Monitor serum electrolytes, CBC, WBC, temperature curve - gi and surgery following 04/27-doing well following ERCP. Plan for laparoscopic cholecystectomy tomorrow by Dr. Prince. Advance to a low-fat diet today and NPO after midnight. (2) Transaminitis: Code(s): R74.01 - Elevation of levels of liver transaminase levels Status: Acute Assessment and Plan: Tot bili 2.6, AST >796, ALT >1000, alk phos 118 on admission. Concerning for common bile duct obstruction. No choledocholithiasis seen on imaging. Possible that the stone has passed. - LFTs downtrending with IV fluid resuscitation - GI consulted Liver workup ordered - Abdomen/pelvis CT: Acute interstitial pancreatitis. Dilation of the common bile duct and could not exclude a low-density gallstones occult on CT. Consider MRCP for further evaluation. - MRCP: Cholelithiasis. Gallbladder wall thickening could reflect superimposed acute cholecystitis. Consider HIDA scan as indicated. Mild acute pancreatitis. Possible tiny common bile duct stone. (3) Common bile duct dilatation: Code(s): K83.8 - Other specified diseases of biliary tract Status: Acute Assessment and Plan: See acute pancreatitis #1 and transaminitis #2 (4) Gastroesophageal reflux disease: Qualifiers: Esophagitis presence: esophagitis presence not specified Qualified Code(s): K21.9 - Gastro-esophageal reflux disease without esophagitis Code(s): K21.9 - Gastro-esophageal reflux disease without esophagitis Status: Acute Assessment and Plan: Chronic, well controlled on home medications. - Protonix 40 mg IV - Monitor Plan Final dx: s/p Laparoscopic Cholecystectomy DS: Summary Hospital Course Hospital Course: This is a 53-year-old woman with a PMH of GERD, who we have been asked to see in surgical consultation for gallstone pancreatitis. She reports having intermittent mild episodes of epigastric pain for the past 7 months. Typically pain would resolve in a few hours. She had another episode of epigastric pain starting 4 days ago that was more severe than her previous episodes. Pain did not improve overnight and ultimately brought her into [place] [facility] the following morning. She reports associated nausea, but no vomiting, fever, or chills. Workup in [place] [facility] was concerning for gallstone pancreatitis. Labs showed a white blood cell count of 7100, total bilirubin 2.6, AST greater than 796, ALT greater than 1000, alk-phos 118, and lipase 2839. CT scan of the abdomen and pelvis showed acute interstitial pancreatitis, dilation of the common bile duct and could not exclude a low-density gallstone. She was
[2024-05-03 08:54] LABS: Mitochondrial (M2) Ab (IgG) <20.0 U
== END 2024-04-28 16:37 | disposition home or self-care (01) | DRG 418 ==
PROVIDERS: Internal Medicine Gastroenterology; Nurse Practitioner Family; Physician Assistant; Student in an Organized Health Care Education/Training Program; Surgery; Admitting Provider Internal Medicine; PCP Family Medicine; Visit Provider Nurse Practitioner
PROC: 0F798ZZ Dilation of Common Bile Duct, Via Natural or Artificial Opening Endoscopic (ICD-10-PCS; CPT 43260; principal; 2024-04-26 12:00)
PROC: 0FT44ZZ Resection of Gallbladder, Percutaneous Endoscopic Approach (ICD-10-PCS; CPT 47562; principal; 2024-04-28 12:00)
DX: K85.10 Biliary acute pancreatitis without necrosis or infection (principal); K80.10 Calculus of gallbladder with chronic cholecystitis without obstruction; K21.9 Gastro-esophageal reflux disease without esophagitis; K83.8 Other specified diseases of biliary tract; E87.6 Hypokalemia; M47.812 Spondylosis without myelopathy or radiculopathy, cervical region; M48.02 Spinal stenosis, cervical region; E66.9 Obesity, unspecified; Z68.33 Body mass index [BMI] 33.0-33.9, adult; Z90.710 Acquired absence of both cervix and uterus
CPT/HCPCS: 36415; 74183; 74329; 76376; 78227; 80053; 80074; 80307; 82103; 82105; 82390; 82728; 82784; 82787; 83520; 83540; 83550; 83690; 83735; 85025; 85027; 85610; 85730; 86038; 86039; 86364; 86644; 86645; 87529; 88304; A9270; A9537; A9577; J0330; J0690; J1100; J1885; J2250; J2270; J2405; J2470; J2704; J2805; J3010; J3480; J7030; J7040; J7120; Q9966